=== PATIENT | male | born 1960 | race Caucasian/White ===

== ENCOUNTER 2017-08-08 10:52 | Inpatient (IN) | payer OTHER ==
[2017-08-08] MEDS ORDERED: IPRATROPIUM-ALBUTEROL 3 ML NEB INHALATION STA ×2 (11:02→13:19)
[2017-08-08] MEDS ORDERED: methylPREDNISolone SOD SUCCI 125 MG/2 ML VIAL IV STA (11:02)
--- NOTE | 2017-08-08 11:06 | ED ---
SOB HPI - General Chief Complaint: Shortness of Breath Stated Complaint: SOB Time Seen by Provider: 08/08/17 10:57 Source: patient, RN notes reviewed Mode of arrival: wheelchair Limitations: no limitations - History of Present Illness Initial Comments: This is a 56-year-old male with a history of COPD who is a former smoker who quit 5 years ago who states he had the onset yesterday evening of shortness of breath cough with greenish brown phlegm fevers chills sweats and pain to the chest and increases with deep breathing. He states the pain is occasionally burning in stabbing no mild when this happens senna right side of his chest. He also has some burning with inspiration. His home medications have not worked. He denies any dizziness nausea vomiting he has had some rhinorrhea but no sore throat no earaches. MD Complaint: shortness of breath, cough, chest pain, pain with inspiration - Related Data Home Medications Medication Instructions Recorded Confirmed No Known Home Medications [No 08/08/17 08/08/17 Known Home Medications] Allergies Allergy/AdvReac Type Severity Reaction Status Date / Time No Known Allergies Allergy Verified 08/08/17 11:59 Review of Systems ROS Statement: Those systems with pertinent positive or pertinent negative responses have been documented in the HPI. ROS Other: All systems not noted in ROS Statement are negative. Past Medical History Past Medical History: Asthma, COPD, Pneumonia Additional Past Medical History / Comment(s): Other HX: Recent hospitalization 06/25/14-06/28/14 for COPD/RLL pneumonia, hyperglycemia from steroid use. History of Any Multi-Drug Resistant Organisms: None Reported Past Surgical History: Appendectomy Past Anesthesia/Blood Transfusion Reactions: No Reported Reaction Past Psychological History: Anxiety Smoking Status: Former smoker Past Alcohol Use History: Heavy Past Drug Use History: None Reported - Past Family History Father Additional Family Medical History / Comment(s): Father of an aneurysm Mother Family Medical History: Diabetes Mellitus, Thyroid Disorder General Exam - General Exam Comments Initial Comments: This is a well-developed well-nourished awake alert oriented times 3 male Limitations: no limitations General appearance: alert, anxious, in distress Head exam: Present: atraumatic, normocephalic, normal inspection Eye exam: Present: normal appearance, PERRL, EOMI. Absent: scleral icterus, conjunctival injection, periorbital swelling ENT exam: Present: mucous membranes dry, TM's normal bilaterally, other (Boggy nasal mucosa) Neck exam: Present: normal inspection, full ROM, other (No stridor JVD or bruits ). Absent: tenderness, meningismus, lymphadenopathy Respiratory exam: Present: respiratory distress, wheezes, chest wall tenderness , accessory muscle use, decreased breath sounds Cardiovascular Exam: Present: tachycardia GI/Abdominal exam: Present: soft, normal bowel sounds. Absent: distended, tenderness, guarding, rebound, rigid Extremities exam: Present: normal inspection, full ROM, normal capillary refill. Absent: tenderness, pedal edema, joint swelling, calf tenderness Back exam: Present: normal inspection Neurological exam: Present: alert, oriented X3, CN II-XII intact Psychiatric exam: Present: anxious Skin exam: Present: warm, intact, normal color, diaphoretic Course Vital Signs 08/08/17 08/08/17 08/08/17 10:53 11:09 11:20 Temperature 98.4 F Pulse Rate 105 H 104 H 103 H Respiratory 32 H Rate Blood Pressure 158/101 O2 Sat by Pulse 98 Oximetry 08/08/17 08/08/17 08/08/17 12:02 12:47 13:39 Temperature Pulse Rate 101 H 103 H 96 Respiratory 22 24 Rate Blood Pressure 149/90 153/99 O2 Sat by Pulse 97 95 Oximetry 08/08/17 08/08/17 13:48 14:00 Temperature Pulse Rate 94 92 Respiratory 18 Rate Blood Pressure 158/78 O2 Sat by Pulse 94 L Oximetry - Reevaluation(s) Reevaluation #1: 08/08/17 15:31 I did reevaluate patient several occasions he did not get much relief from the initial treatment including repeat updraft and IV steroids. Medical Decision Making - Medical Decision Making I did discuss the findings with the patient. He is feeling initial treatments and will require admission. I did discuss the case with Dr. Lara. Dr. Moses will be consulted. - Lab Data Result diagrams: 08/08/17 11:10 08/08/17 11:10 Lab Results 08/08/17 08/08/17 08/08/17 Range/Units 11:10 11:10 11:10 WBC 12.6 H (3.8-10.6) k/uL RBC 6.07 H (4.30-5.90) m/uL Hgb 18.1 H (13.0-17.5) gm/dL Hct 54.7 H (39.0-53.0) % MCV 90.2 (80.0-100.0) fL MCH 29.9 (25.0-35.0) pg MCHC 33.1 (31.0-37.0) g/dL RDW 12.9 (11.5-15.5) % Plt Count 210 (150-450) k/uL Neutrophils % 78 % Lymphocytes % 13 % Monocytes % 5 % Eosinophils % 2 % Basophils % 1 % Neutrophils # 9.8 H (1.3-7.7) k/uL Lymphocytes # 1.7 (1.0-4.8) k/uL Monocytes # 0.7 (0-1.0) k/uL Eosinophils # 0.2 (0-0.7) k/uL Basophils # 0.1 (0-0.2) k/uL PT (9.0-12.0) sec INR (<1.2) APTT (22.0-30.0) sec D-Dimer (<0.60) mg/L FEU Sodium 140 (137-145) mmol/L Potassium 4.8 (3.5-5.1) mmol/L Chloride 103 (98-107) mmol/L Carbon Dioxide 19 L (22-30) mmol/L Anion Gap 18 mmol/L BUN 12 (9-20) mg/dL Creatinine 0.89 (0.66-1.25) mg/dL Est GFR (MDRD) Af Amer >60 (>60 ml/min/1.73 sqM) Est GFR (MDRD) Non-Af >60 (>60 ml/min/1.73 sqM) Glucose 230 H (74-99) mg/dL Plasma Lactic Acid Lemuel (0.7-2.0) mmol/L Calcium 9.9 (8.4-10.2) mg/dL Magnesium 1.7 (1.6-2.3) mg/dL Total Bilirubin 1.3 (0.2-1.3) mg/dL AST 53 (17-59) U/L ALT 105 H (21-72) U/L Alkaline Phosphatase 97 (38-126) U/L Total Creatine Kinase 77 (55-170) U/L CK-MB (CK-2) 0.9 (0.0-2.4) ng/mL CK-MB (CK-2) Rel Index 1.2 Troponin I 0.016 (0.000-0.034) ng/mL NT-Pro-B Natriuret Pep pg/mL Total Protein 7.7 (6.3-8.2) g/dL Albumin 4.7 (3.5-5.0) g/dL Influenza Type A RNA (Not Detectd) Influenza Type B (PCR) (Not Detectd) 08/08/17 08/08/17 08/08/17 Range/Units 11:10 11:59 12:01 WBC (3.8-10.6) k/uL RBC (4.30-5.90) m/uL Hgb (13.0-17.5) gm/dL Hct (39.0-53.0) % MCV (80.0-100.0) fL MCH (25.0-35.0) pg MCHC (31.0-37.0) g/dL RDW (11.5-15.5) % Plt Count (150-450) k/uL Neutrophils % % Lymphocytes % % Monocytes % % Eosinophils % % Basophils % % Neutrophils # (1.3-7.7) k/uL Lymphocytes # (1.0-4.8) k/uL Monocytes # (0-1.0) k/uL Eosinophils # (0-0.7) k/uL Basophils # (0-0.2) k/uL PT 10.5 (9.0-12.0) sec INR 1.1 (<1.2) APTT 23.9 (22.0-30.0) sec D-Dimer 0.73 H (<0.60) mg/L FEU Sodium (137-145) mmol/L Potassium (3.5-5.1) mmol/L Chloride (98-107) mmol/L Carbon Dioxide (22-30) mmol/L Anion Gap mmol/L BUN (9-20) mg/dL Creatinine (0.66-1.25) mg/dL Est GFR (MDRD) Af Amer (>60 ml/min/1.73 sqM) Est GFR (MDRD) Non-Af (>60 ml/min/1.73 sqM) Glucose (74-99) mg/dL Plasma Lactic Acid Lemuel 2.0 (0.7-2.0) mmol/L Calcium (8.4-10.2) mg/dL Magnesium (1.6-2.3) mg/dL Total Bilirubin (0.2-1.3) mg/dL AST (17-59) U/L ALT (21-72) U/L Alkaline Phosphatase (38-126) U/L Total Creatine Kinase (55-170) U/L CK-MB (CK-2) (0.0-2.4) ng/mL CK-MB (CK-2) Rel Index Troponin I (0.000-0.034) ng/mL NT-Pro-B Natriuret Pep pg/mL Total Protein (6.3-8.2) g/dL Albumin (3.5-5.0) g/dL Influenza Type A RNA Not Detected (Not Detectd) Influenza Type B (PCR) Not Detected (Not Detectd) 08/08/17 Range/Units 12:01 WBC (3.8-10.6) k/uL RBC (4.30-5.90) m/uL Hgb (13.0-17.5) gm/dL Hct (39.0-53.0) % MCV (80.0-100.0) fL MCH (25.0-35.0) pg MCHC (31.0-37.0) g/dL RDW (11.5-15.5) % Plt Count (150-450) k/uL Neutrophils % % Lymphocytes % % Monocytes % % Eosinophils % % Basophils % % Neutrophils # (1.3-7.7) k/uL Lymphocytes # (1.0-4.8) k/uL Monocytes # (0-1.0) k/uL Eosinophils # (0-0.7) k/uL Basophils # (0-0.2) k/uL PT (9.0-12.0) sec INR (<1.2) APTT (22.0-30.0) sec D-Dimer (<0.60) mg/L FEU Sodium (137-145) mmol/L Potassium (3.5-5.1) mmol/L Chloride (98-107) mmol/L Carbon Dioxide (22-30) mmol/L Anion Gap mmol/L BUN (9-20) mg/dL Creatinine (0.66-1.25) mg/dL Est GFR (MDRD) Af Amer (>60 ml/min/1.73 sqM) Est GFR (MDRD) Non-Af (>60 ml/min/1.73 sqM) Glucose (74-99) mg/dL Plasma Lactic Acid Lemuel (0.7-2.0) mmol/L Calcium (8.4-10.2) mg/dL Magnesium (1.6-2.3) mg/dL Total Bilirubin (0.2-1.3) mg/dL AST (17-59) U/L ALT (21-72) U/L Alkaline Phosphatase (38-126) U/L Total Creatine Kinase (55-170) U/L CK-MB (CK-2) (0.0-2.4) ng/mL CK-MB (CK-2) Rel Index Troponin I (0.000-0.034) ng/mL NT-Pro-B Natriuret Pep 18 pg/mL Total Protein (6.3-8.2) g/dL Albumin (3.5-5.0) g/dL Influenza Type A RNA (Not Detectd) Influenza Type B (PCR) (Not Detectd) - EKG Data -: EKG Interpreted by Ia EKG shows normal: sinus rhythm (Sinus tachycardia rate of 101. Interval 150 QRS 88 QT since QTC 340/440 some artifact is present no acute ST-T wave changes are seen.) - Radiology Data Radiology results: report reviewed (Imaging shows evidence of COPD no definite infiltrate.), image reviewed Critical Care Time Critical Care Time: Yes Critical Care Time: 33 minutes of critical care time which includes initial presentation with history physical labs x-rays multiple reevaluation patient responsive therapy discuss with the patient regarding findings discussed with the admitting physician initial orders and documentation of the above. Disposition Clinical Impression: Acute exacerbation of chronic obstructive airways disease, Adult respiratory distress syndrome, Tracheobronchitis Disposition: ADMITTED IP TO THIS HOSP Condition: Stable Referrals: Inderjit Sims MD [Primary Care Provider] - 1-2 days
--- NOTE | 2017-08-08 11:39 | XR ---
EXAMINATION TYPE: XR chest 2V DATE OF EXAM: 08/08/2017 HISTORY: difficulty breathing. REFERENCE: Previous study dated 01/11/2015. FINDINGS: The lungs are overinflated. The heart is not enlarged. There are chronic pleural parenchyma l changes present. I see no definite superimposed pneumonia or edema. Pleural spaces are clear. IMPRESSION: COPD.
[2017-08-08 11:47] LABS: Albumin 4.7 g/dL (3.5-5.0); Anion Gap 18 mmol/L; Calcium 9.9 mg/dL (8.4-10.2); Carbon Dioxide 19 mmol/L (22-30); Chloride 103 mmol/L (98-107); Glucose 230 mg/dL (74-99); Sodium 140 mmol/L (137-145); Total Bilirubin 1.3 mg/dL (0.2-1.3); Total Protein 7.7 g/dL (6.3-8.2)
[2017-08-08 11:49] LABS: Blood Urea Nitrogen 12 mg/dL (9-20); Magnesium 1.7 mg/dL (1.6-2.3); Potassium 4.8 mmol/L (3.5-5.1)
[2017-08-08 11:50] LABS: ALT 105 U/L (21-72); AST 53 U/L (17-59); Alkaline Phosphatase 97 U/L (38-126)
[2017-08-08 11:51] LABS: Basophils # (A) 0.1 k/uL (0-0.2); Basophils % (A) 1 %; Eosinophils # (A) 0.2 k/uL (0-0.7); Eosinophils % (A) 2 %; HCT 54.7 % (39.0-53.0); HGB 18.1 gm/dL (13.0-17.5); Lymphocytes # (A) 1.7 k/uL (1.0-4.8); Lymphocytes % (A) 13 %; MCH 29.9 pg (25.0-35.0); MCHC 33.1 g/dL (31.0-37.0); MCV 90.2 fL (80.0-100.0); Mean Platelet Volume 7.9; Monocytes # (A) 0.7 k/uL (0-1.0); Monocytes % (A) 5 %; Neutrophils # (A) 9.8 k/uL (1.3-7.7); Neutrophils % (A) 78 %; Platelet Count 210 k/uL (150-450); RBC 6.07 m/uL (4.30-5.90); RDW 12.9 % (11.5-15.5); WBC 12.6 k/uL (3.8-10.6)
[2017-08-08] MEDS: SODIUM CHLORIDE 0.9% 1,000 ML IV STA ×2 (12:01→18:06)
[2017-08-08 12:05] LABS: Creatine Kinase MB 0.9 ng/mL (0.0-2.4); Troponin I 0.016 ng/mL (0.000-0.034)
[2017-08-08 12:34] LABS: D-Dimer 0.73 mg/L FEU (<0.60)
[2017-08-08 12:42] LABS: INR 1.1 (<1.2); Partial Thromboplastin Time 23.9 sec (22.0-30.0); Prothrombin Time 10.5 sec (9.0-12.0)
[2017-08-08] MEDS ORDERED: LEVOFLOXACIN 750MG-D5W PMX 750 MG in DEXTROSE/WATER 1 150ML.BAG IVPB STA (15:35)
[2017-08-08 16:33] LABS: Appearance,Urine Clear (Clear); Bilirubin,Urine Negative (Negative); Blood,Urine Negative (Negative); Color,Urine Yellow; Glucose,Urine (UA) 4+ (Negative); Ketones,Urine 1+ (Negative); Leukocyte Esterase,Urine Negative (Negative); Mucus,Urine Moderate /hpf; Nitrite,Urine Negative (Negative); Protein,Urine 1+ (Negative); RBC,Urine 1 /hpf (0-5); Specific Gravity,Urine 1.021 (1.001-1.035); Squamous Epithelial Cell,Urine <1 /hpf (0-4); Urobilinogen,Urine <2.0 mg/dL (<2.0); WBC,Urine 1 /hpf (0-5)
[2017-08-08 17:16] VITALS: BMI 31.8
[2017-08-08] MEDS: methylPREDNISolone SOD SUCCI 125 MG/2 ML VIAL IV SCH ×2 (18:06→23:59)
[2017-08-08] MEDS: SODIUM CHLORIDE 0.9% 1,000 ML IV SCH (18:06)
[2017-08-08] MEDS: IPRATROPIUM-ALBUTEROL 3 ML NEB INHALATION SCH ×2 (19:10→19:14)
[2017-08-08 20:35] LABS: Glucose,Whole Blood 387 mg/dL (75-99)
[2017-08-08] MEDS: INSULIN ASPART 100 UNIT/ML 1 ML 10 ML VIAL SQ SCH (21:51)
[2017-08-09] MEDS: SODIUM CHLORIDE 0.9% 1,000 ML IV SCH ×2 (00:01→13:22)
[2017-08-09] MEDS: IPRATROPIUM-ALBUTEROL 3 ML NEB INHALATION SCH ×6 (00:03→19:29)
[2017-08-09] MEDS ORDERED: ALPRAZolam 0.25 MG TAB PO PRN (00:22)
[2017-08-09] MEDS ORDERED: TEMAZEPAM 15 MG CAP PO PRN (00:22)
[2017-08-09] MEDS ORDERED: cefTRIAXone IN SWFI 1,000 MG/10 ML SYRINGE IVP SCH (01:00)
[2017-08-09 06:02] LABS: Glucose,Whole Blood 264 mg/dL (75-99)
[2017-08-09] MEDS: methylPREDNISolone SOD SUCCI 125 MG/2 ML VIAL IV SCH ×3 (06:25→17:36)
[2017-08-09] MEDS: FORMOTEROL FUMARATE 20 MCG/2 ML NEBU INHALATION SCH ×2 (07:09→19:29)
[2017-08-09] MEDS: BUDESONIDE 1 MG/2 ML NEBU INHALATION SCH ×2 (07:09→19:29)
[2017-08-09 07:23] LABS: Glucose,Whole Blood 267 mg/dL (75-99)
[2017-08-09] MEDS ORDERED: AZITHROMYCIN 500 MG in SODIUM CHLORIDE 0.9% 250 ML IVPB SCH (09:00)
[2017-08-09] MEDS: PANTOPRAZOLE 40 MG TABLET PO SCH (09:17)
[2017-08-09] MEDS: HEPARIN SODIUM,PORCINE 5,000 UNIT/ML 1 ML VIAL SQ SCH ×2 (09:17→21:14)
[2017-08-09] MEDS: INSULIN ASPART 100 UNIT/ML 1 ML 10 ML VIAL SQ SCH ×4 (09:17→21:16)
--- NOTE | 2017-08-09 09:49 | HP ---
HISTORY AND PHYSICAL CHIEF COMPLAINT: Shortness of breath and cough. HISTORY OF PRESENT ILLNESS: This 56-year-old gentleman with past medical history of COPD, history pneumonia, history of anxiety being for Dr. Sims and Dr. Moses in the outpatient setting has also been to [facility] and was being evaluated for lung resection surgeries /lung transplantation. Currently the patient has shortness of breath and cough and sputum. Patient came to [facility] and admitted for further evaluation and treatment. Chest x-ray showed significant bullous emphysematous changes and greenish-brown phlegm was complained of. There is no history of fever or rigors. No history headache, loss of consciousness, or seizures. PAST MEDICAL HISTORY: Asthma, COPD, history pneumonia, anxiety. MEDICATIONS: Medications prior to admission include home medications are none. ALLERGIES: None. FAMILY HISTORY: History of diabetes, hypothyroidism, aneurysm. SOCIAL HISTORY: Previous history of smoking. Occasional alcohol intake. REVIEW OF SYSTEMS: ENT: No diminished hearing or diminished vision. CARDIOVASCULAR SYSTEM: No angina. RESPIRATORY SYSTEM: As mentioned earlier. GI: No nausea. : No dysuria. NERVOUS SYSTEM: No numbness or weakness. ALLERGY/IMMUNOLOGY: neg MUSCULOSKELETAL: As mentioned earlier. HEMATOLOGY/ONCOLOGY: No history of anemia. ENDOCRINE: No history of diabetes or hypothyroidism. CONSTITUTIONAL: As mentioned earlier. DERMATOLOGY: Negative. RHEUMATOLOGY: Negative. PSYCHIATRY: As mentioned earlier. PHYSICAL EXAMINATION: The patient is alert and oriented x3. Pulse 74, blood pressure 138/69, respiration 18, temperature 98.5, pulse ox 94% on 3 L. HEENT: Conjunctivae normal. Oral mucosa moist. Neck is no jugular venous distention. No carotid bruit. No lymph node enlargement. CARDIOVASCULAR: S1 and S2 muffled. No S3, no S4. RESPIRATORY: Breath sounds diminished at the bases. Breathing efforts are markedly increased, emphysematous. Bilateral scattered rhonchi and crackles. ABDOMEN: Soft, obese, nontender. Umbilical hernia present. LEGS: No edema, no swelling. NERVOUS SYSTEM: Higher function as mentioned earlier. Moves all 4 limbs. No focal motor or sensory deficits. LYMPHATICS: No lymphadenopathy of the neck, axillae or groin. SKIN: No ulcer, rash or bleeding. LABS: WBC 12.6, hemoglobin is 18.1. Otherwise, other labs noted. ASSESSMENT: 1. Chronic obstructive pulmonary disease acute exacerbation with acute purulent tracheobronchitis. 2. Increased WBC. 3. Increased hemoglobin. 4. 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 5. History of asthma, chronic obstructive pulmonary disease. 6. History recent pneumonia. 7. History of anxiety. 8. Remote history of nicotine dependence. RECOMMENDATIONS AND DISCUSSION: This 56-year-old gentleman presented with multiple medical problems, we will monitor the patient closely. Continue the current medications. Continue symptomatic treatment. Will initiate broad-spectrum IV antibiotics and as well as bronchodilators and steroids. We will initiate insulin drip if the patient's sugars are significantly elevated. Further recommendations to follow. MMODL / IJN: [id number] / MTDD
[2017-08-09 11:59] LABS: Glucose,Whole Blood 259 mg/dL (75-99)
[2017-08-09 12:50] LABS: Hemoglobin A1C 8.3 % (4.0-6.0)
--- NOTE | 2017-08-09 14:10 | P.CNPUL ---
History of Present Illness Consult date: 08/09/17 Reason for consult: dyspnea, cough, COPD, hypoxemia, abnormal CXR/CT Chief complaint: Shortness of breath History of present illness: Consult dated 08/09/2017 This is a 56-year-old male well-known to me. He has a history of COPD. He used to smoke quite heavily but quit 5 years ago. The patient has severe emphysema with significant bullae and cystic changes throughout both lungs. He apparently came to the emergency room with complaints of increasing shortness of breath chest tightness wheezing cough and green and brown phlegm production. The patient was quite severe in the emergency room and then was evaluated there and treated and admitted to the hospital. He's feeling a bit better currently but still very very short of breath. He sitting at the bedside. He has significant conversational dyspnea. No audible wheezing. No nasal flaring. No use of accessory muscles. Denies any chest pain or chest discomfort. No palpitations Review of Systems A 12 point review of system is positive for shortness of breath chest tightness wheezing cough and yellow green/brown phlegm production. No fever or chills. No chest pain or chest discomfort. Past Medical History Past Medical History: Asthma, COPD, Pneumonia Additional Past Medical History / Comment(s): Other HX: Recent hospitalization 06/25/14-06/28/14 for COPD/RLL pneumonia, hyperglycemia from steroid use. History of Any Multi-Drug Resistant Organisms: None Reported Past Surgical History: Appendectomy Past Anesthesia/Blood Transfusion Reactions: No Reported Reaction Past Psychological History: Anxiety Additional Psychological History / Comment(s): anxiety related to episodes of shortness of breath Smoking Status: Former smoker Past Alcohol Use History: Heavy Additional Past Alcohol Use History / Comment(s): Pt lives at home alone. Pt is an independent person. He drives a car. He is employed. Past Drug Use History: None Reported - Past Family History Father Additional Family Medical History / Comment(s): Father of an aneurysm Mother Family Medical History: Diabetes Mellitus, Thyroid Disorder Medications and Allergies Home Medications Medication Instructions Recorded Confirmed Type No Known Home Medications [No 08/08/17 08/08/17 History Known Home Medications] Allergies Allergy/AdvReac Type Severity Reaction Status Date / Time No Known Allergies Allergy Verified 08/08/17 11:59 Physical Exam Osteopathic Statement: *. No significant issues noted on an osteopathic structural exam other than those noted in the History and Physical/Consult. Vitals: Vital Signs Temp Pulse Pulse Resp BP BP Pulse Ox 08/09/17 10:49 91 08/09/17 10:43 90 08/09/17 08:00 18 08/09/17 07:32 89 08/09/17 07:23 88 08/09/17 07:22 88 08/09/17 07:12 88 08/09/17 05:50 96.7 F L 86 18 158/97 96 08/09/17 00:25 87 08/09/17 00:06 87 08/08/17 23:00 98.5 F 74 18 138/69 94 L 08/08/17 19:24 100 08/08/17 19:14 104 H 08/08/17 18:08 97.5 F L 96 20 145/95 95 08/08/17 17:49 24 08/08/17 16:08 98.5 F 93 22 162/86 94 L Intake and Output 08/08/17 08/09/17 08/09/17 22:59 06:59 14:59 Intake Total 200 320 Output Total 700 Balance 200 -700 320 Intake: Amount of Fluid Infused ( 200 ml) Oral 320 Output: Urine 700 Other: # Voids 2 Weight 100.5 kg 100.5 kg Patient Weight 08/10/17 06:59 Weight 100.5 kg Mild to moderate distress, oriented 3. The patient does have conversational dyspnea. HEENT examination is grossly unremarkable. Mucous membranes are moist. No oral lesions. Neck supple. Full range of motion. No adenopathy thyromegaly or neck vein distention. Cardiovascular examination reveals regular rhythm rate. S1-S2 normal. No S3 or S4. No discernible murmur noted. Lungs reveal severely diminished breath sounds. Scattered wheezes and rhonchi. This prolongation on forced maneuver. Adventitious lung sounds are more prominent on forced maneuver. The patient coughs and wheezes on forced maneuver. Abdomen soft bowel sounds are heard. No masses or tenderness. Extremities are intact. No cyanosis clubbing or edema. Skin is without rash or lesion. Neurologic examination is brief but nonfocal. Results - Laboratory Findings CBC and BMP: 08/08/17 11:10 08/08/17 11:10 PT/INR, D-dimer PT 10.5 sec (9.0-12.0) 08/08/17 12:01 INR 1.1 (<1.2) 08/08/17 12:01 D-Dimer 0.73 mg/L FEU (<0.60) H 08/08/17 12:01 Abnormal lab findings: Abnormal Labs 08/08/17 08/08/17 08/08/17 11:10 11:10 12:01 WBC 12.6 H RBC 6.07 H Hgb 18.1 H Hct 54.7 H Neutrophils # 9.8 H D-Dimer 0.73 H Carbon Dioxide 19 L Glucose 230 H POC Glucose (mg/dL) ALT 105 H Urine Protein Urine Glucose (UA) Urine Ketones Urine Mucus 08/08/17 08/08/17 08/09/17 16:05 20:33 06:00 WBC RBC Hgb Hct Neutrophils # D-Dimer Carbon Dioxide Glucose POC Glucose (mg/dL) 387 H 264 H ALT Urine Protein 1+ H Urine Glucose (UA) 4+ H Urine Ketones 1+ H Urine Mucus Moderate H 08/09/17 08/09/17 07:19 11:55 WBC RBC Hgb Hct Neutrophils # D-Dimer Carbon Dioxide Glucose POC Glucose (mg/dL) 267 H 259 H ALT Urine Protein Urine Glucose (UA) Urine Ketones Urine Mucus - Diagnostic Findings Chest x-ray: image reviewed (Labs x-rays a medications are all reviewed.) Assessment and Plan Assessment: Assessment Hypoxemic respiratory failure secondary to COPD exacerbation probable purulent tracheobronchitis Chronic hypoxemia Previous history of heavy tobacco use Previous history of pneumonia History of steroid-induced hyperglycemia Severe bullous lung disease Plan: Plan dated 08/09/2017 The patient's medications are reviewed. He'll be placed on standard medications including short acting beta agonist, short acting muscarinic antagonist, long-acting beta agonist, and inhaled corticosteroids. We'll also need some antibiotics as well as systemic corticosteroids. Additional recommendations and suggestions are forthcoming. Prognosis is guarded. He's got severe disease. He is significant bullous disease. We'll continue to follow. Time with Patient: Greater than 30
[2017-08-09] MEDS ORDERED: LEVOFLOXACIN 500 MG TAB PO SCH (16:00)
[2017-08-09 17:30] LABS: Glucose,Whole Blood 264 mg/dL (75-99)
[2017-08-09 20:50] LABS: Glucose,Whole Blood 248 mg/dL (75-99)
[2017-08-09] MEDS: cefTRIAXone IN SWFI 1,000 MG/10 ML SYRINGE IVP SCH (21:19)
--- NOTE | 2017-08-09 22:13 | PN ---
PROGRESS NOTE DATE OF SERVICE: 08/09/2017 This 56 -year-old gentleman admitted with COPD acute exacerbation, as well as acute purulent tracheobronchitis is still having significant shortness of breath, patient on IV steroids and bronchodilators. Pulmonary Dr. Carmona is following the patient. No chest pain. No palpitations. No fever. EXAM: Alert and oriented times three. Pulse is 85, blood pressure 131/83, respiration 22, temperature 97.2, pulse ox 94% on 3 L. HEENT: Conjunctivae normal. Neck: No jugular venous distention. Cardiovascular: S1, S2. Respiratory: Breath sounds diminished in the bases. Bilateral scattered rhonchi and crackles. Expiratory wheezing. Abdomen is soft, nontender. Legs are no edema. No swelling. Central nervous system: No focal deficits. LABS: WBC 12.2, hemoglobin 18.1. Glucose 387 and 264. ASSESSMENT: 1. Chronic obstructive pulmonary disease exacerbation with acute purulent tracheobronchitis. 2. Increased WBC. 3. Increased hemoglobin. 4. 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 5. Bilateral bullous lesions with bullous emphysema. 6. History of asthma, chronic obstructive pulmonary disease. 7. Recent pneumonia. 8. History of anxiety. 9. Remote history of nicotine dependence. RECOMMENDATIONS AND DISCUSSION: Recommend to continue current medications, management and symptomatic treatment. Continue with IV steroids. Continue with bronchodilators. Closely follow with Dr. Carmona. Guarded prognosis because of multiple complex medical issues. Monitor blood sugars closely. DVT prophylaxis. Continue the empiric antibiotics. Further recommendations to follow. MMODL / IJN: [id number] /
[2017-08-10] MEDS: IPRATROPIUM-ALBUTEROL 3 ML NEB INHALATION SCH ×6 (00:03→20:26)
[2017-08-10] MEDS: methylPREDNISolone SOD SUCCI 125 MG/2 ML VIAL IV SCH ×4 (00:11→17:42)
[2017-08-10 06:59] LABS: Glucose,Whole Blood 329 mg/dL (75-99)
[2017-08-10] MEDS: FORMOTEROL FUMARATE 20 MCG/2 ML NEBU INHALATION SCH ×2 (07:34→20:26)
[2017-08-10] MEDS: BUDESONIDE 1 MG/2 ML NEBU INHALATION SCH ×2 (07:34→20:26)
[2017-08-10] MEDS: HEPARIN SODIUM,PORCINE 5,000 UNIT/ML 1 ML VIAL SQ SCH ×2 (08:13→21:18)
[2017-08-10] MEDS: AZITHROMYCIN 500 MG TAB PO SCH (08:13)
[2017-08-10] MEDS: PANTOPRAZOLE 40 MG TABLET PO SCH (08:13)
[2017-08-10] MEDS: INSULIN ASPART 100 UNIT/ML 1 ML 10 ML VIAL SQ SCH ×9 (08:13→21:41)
[2017-08-10 08:35] LABS: Basophils % (A) 0 %; Eosinophils % (A) 0 %; HCT 48.1 % (39.0-53.0); HGB 15.6 gm/dL (13.0-17.5); Lymphocytes # (A) 0.6 k/uL (1.0-4.8); Lymphocytes % (A) 5 %; MCH 29.9 pg (25.0-35.0); MCHC 32.4 g/dL (31.0-37.0); MCV 92.1 fL (80.0-100.0); Mean Platelet Volume 7.1; Monocytes # (A) 0.2 k/uL (0-1.0); Monocytes % (A) 2 %; Neutrophils % (A) 92 %; Platelet Count 197 k/uL (150-450); RBC 5.22 m/uL (4.30-5.90); WBC 10.9 k/uL (3.8-10.6)
[2017-08-10 08:45] LABS: Anion Gap 13 mmol/L; Blood Urea Nitrogen 20 mg/dL (9-20); Calcium 9.4 mg/dL (8.4-10.2); Carbon Dioxide 23 mmol/L (22-30); Chloride 104 mmol/L (98-107); Glucose 306 mg/dL (74-99); Potassium 4.9 mmol/L (3.5-5.1); Sodium 140 mmol/L (137-145)
--- NOTE | 2017-08-10 09:51 | P.PN ---
Subjective Progress Note Date: 08/10/17 Principal diagnosis: Acute on chronic hypoxic respiratory failure secondary to COPD exacerbation and purulent tracheobronchitis Consult dated 08/09/2017 This is a 56-year-old male well-known to me. He has a history of COPD. He used to smoke quite heavily but quit 5 years ago. The patient has severe emphysema with significant bullae and cystic changes throughout both lungs. He apparently came to the emergency room with complaints of increasing shortness of breath chest tightness wheezing cough and green and brown phlegm production. The patient was quite severe in the emergency room and then was evaluated there and treated and admitted to the hospital. He's feeling a bit better currently but still very very short of breath. He sitting at the bedside. He has significant conversational dyspnea. No audible wheezing. No nasal flaring. No use of accessory muscles. Denies any chest pain or chest discomfort. No palpitations. On 08/10/2017 patient seen in follow-up. He is awake, alert, upbeat. Lung sounds are diminished with some scattered expiratory wheezes, with prolongation of the expiratory phase. No rhonchi noted. Vital signs are stable, he is currently on 4 L per nasal cannula with O2 sat at 96%. He is afebrile. He is bringing up some yellow sputum. Culture is negative at the 24-hour sofía. He continues on a combination of Rocephin and Zithromax, Pulmicort, femoral, DuoNeb nebulized treatments and IV Solu-Medrol. He stated he was seen by Dr. Chavarria at the [facility], who is considering the patient for lung transplantation. The initial workup was done, and Dr. Chavarria recommended pulmonary rehab to improve conditioning and hopefully breathlessness. Patient was recommended some weight loss. Patient was referred to the [facility] at [facility], and the [facility] is supposed to contact the patient with an appointment. Objective - Vital Signs Vital signs: Vital Signs Temp 97.3 F L 08/10/17 07:00 Pulse 79 08/10/17 07:57 Resp 16 08/10/17 07:35 BP 152/98 08/10/17 07:00 Pulse Ox 96 08/10/17 07:00 Intake & Output 08/09/17 08/10/17 08/10/17 18:59 06:59 18:59 Intake Total 320 Output Total 850 Balance 320 -850 Weight 100.5 kg Intake: Oral 320 Output: Urine 850 Other: Voiding Method Toilet # Voids 3 3 - Exam GENERAL EXAM: Alert, pleasant, 56-year-old white male comfortable in no apparent distress. HEAD: Normocephalic/atraumatic. EYES: Normal reaction of pupils, equal size. Conjunctiva pink, sclera white. NOSE: Clear with pink turbinates. THROAT: No erythema or exudates. NECK: No masses, no JVD, no thyroid enlargement, no adenopathy. CHEST: No chest wall deformity. Symmetrical expansion. LUNGS: Equal air entry with some scattered end expiratory wheezing, there is prolongation of expiratory phase, but there is good air entry bilaterally CVS: Regular rate and rhythm, normal S1 and S2, no gallops, no murmurs, no rubs ABDOMEN: Soft, nontender. No hepatosplenomegaly, normal bowel sounds, no guarding or rigidity. EXTREMITIES: No clubbing, no edema, no cyanosis, 2+ pulses and upper and lower extremities. MUSCULOSKELETAL: Muscle strength and tone normal. SPINE: No scoliosis or deformity SKIN: No rashes CENTRAL NERVOUS SYSTEM: Alert and oriented -3. No focal deficits, tone is normal in all 4 extremities. PSYCHIATRIC: Alert and oriented -3. Appropriate affect. Intact judgment and insight. - Labs CBC & Chem 7: 08/10/17 07:52 08/10/17 07:52 Labs: Abnormal Lab Results - Last 24 Hours (Table) 08/08/17 08/09/17 08/09/17 Range/Units 11:10 11:55 17:15 WBC (3.8-10.6) k/uL Neutrophils # (1.3-7.7) k/uL Lymphocytes # (1.0-4.8) k/uL Glucose (74-99) mg/dL POC Glucose (mg/dL) 259 H 264 H (75-99) mg/dL Hemoglobin A1c 8.3 H (4.0-6.0) % 08/09/17 08/10/17 08/10/17 Range/Units 20:48 06:49 07:52 WBC 10.9 H (3.8-10.6) k/uL Neutrophils # 10.0 H (1.3-7.7) k/uL Lymphocytes # 0.6 L (1.0-4.8) k/uL Glucose (74-99) mg/dL POC Glucose (mg/dL) 248 H 329 H (75-99) mg/dL Hemoglobin A1c (4.0-6.0) % 08/10/17 Range/Units 07:52 WBC (3.8-10.6) k/uL Neutrophils # (1.3-7.7) k/uL Lymphocytes # (1.0-4.8) k/uL Glucose 306 H (74-99) mg/dL POC Glucose (mg/dL) (75-99) mg/dL Hemoglobin A1c (4.0-6.0) % Microbiology - Last 24 Hours (Table) 08/08/17 11:10 Blood Culture - Preliminary Blood No Growth after 24 hours Assessment and Plan Plan: Assessment: Assessment #1 Hypoxemic respiratory failure secondary to COPD exacerbation probable purulent tracheobronchitis #2 Chronic hypoxemia #3 Previous history of heavy tobacco use #4 Previous history of pneumonia #5 History of steroid-induced hyperglycemia #6 Severe bullous lung disease, patient is currently being evaluated for lung transplantation at [facility]. Has completed initial evaluation. Plan: Plan dated 08/09/2017 The patient's medications are reviewed. He'll be placed on standard medications including short acting beta agonist, short acting muscarinic antagonist, long-acting beta agonist, and inhaled corticosteroids. We'll also need some antibiotics as well as systemic corticosteroids. Additional recommendations and suggestions are forthcoming. Prognosis is guarded. He's got severe disease. He is significant bullous disease. We'll continue to follow. Plan dated 08/10/2017 Increase activity as tolerated, patient denies any acute distress, does become dyspneic with ambulation. Currently on 4 L per nasal cannula with O2 sat 96%. Vital signs are stable. Current medical treatment, patient is being evaluated for lung transplantation at the [facility], he has undergone initial evaluation by Dr. Chavarria. Patient was recommended pulmonary rehab, and weight loss for optimization of his conditioning and breathlessness. He was referred to the [facility] at [facility], and they are supposed to call him with an appointment. We will continue to closely follow with you I performed a history & physical examination of the patient and discussed their management with my nurse practitioner, Destiny Kathleen. I reviewed the nurse practitioner's note and agree with the documented findings and plan of care. Lung sounds are and expiratory wheezes, generally diminished lung sounds, and prolongation of the expiratory phase. The findings and the impression was discussed with the patient. I attest to the documentation by the nurse practitioner. Time with Patient: Less than 30
[2017-08-10 11:37] LABS: Glucose,Whole Blood 214 mg/dL (75-99)
[2017-08-10] MEDS: metFORMIN 500 MG TAB PO SCH ×2 (12:03→17:42)
[2017-08-10] MEDS: INSULIN DETEMIR 100 UNIT/ML 10 ML VIAL SQ SCH (12:07)
[2017-08-10 17:10] LABS: Glucose,Whole Blood 234 mg/dL (75-99)
[2017-08-10] MEDS: SODIUM CHLORIDE 0.9% 1,000 ML IV SCH (17:41)
[2017-08-10 20:46] LABS: Glucose,Whole Blood 257 mg/dL (75-99)
[2017-08-10] MEDS: cefTRIAXone IN SWFI 1,000 MG/10 ML SYRINGE IVP SCH (21:18)
[2017-08-11] MEDS: IPRATROPIUM-ALBUTEROL 3 ML NEB INHALATION SCH ×4 (00:18→11:50)
[2017-08-11] MEDS: methylPREDNISolone SOD SUCCI 125 MG/2 ML VIAL IV SCH ×3 (01:01→12:03)
[2017-08-11 07:08] LABS: Glucose,Whole Blood 281 mg/dL (75-99)
[2017-08-11] MEDS: INSULIN ASPART 100 UNIT/ML 1 ML 10 ML VIAL SQ SCH ×5 (08:11→12:02)
[2017-08-11] MEDS: HEPARIN SODIUM,PORCINE 5,000 UNIT/ML 1 ML VIAL SQ SCH (08:12)
[2017-08-11] MEDS: INSULIN DETEMIR 100 UNIT/ML 10 ML VIAL SQ SCH (08:12)
[2017-08-11] MEDS: AZITHROMYCIN 500 MG TAB PO SCH (08:13)
[2017-08-11] MEDS: metFORMIN 500 MG TAB PO SCH (08:13)
[2017-08-11] MEDS: PANTOPRAZOLE 40 MG TABLET PO SCH (08:13)
[2017-08-11] MEDS: BUDESONIDE 1 MG/2 ML NEBU INHALATION SCH (08:19)
[2017-08-11] MEDS: FORMOTEROL FUMARATE 20 MCG/2 ML NEBU INHALATION SCH (08:19)
[2017-08-11 08:20] LABS: Basophils % (A) 0 %; Eosinophils # (A) 0.1 k/uL (0-0.7); Eosinophils % (A) 1 %; HCT 47.2 % (39.0-53.0); HGB 15.4 gm/dL (13.0-17.5); Lymphocytes # (A) 0.5 k/uL (1.0-4.8); Lymphocytes % (A) 6 %; MCH 29.8 pg (25.0-35.0); MCHC 32.7 g/dL (31.0-37.0); MCV 91.3 fL (80.0-100.0); Monocytes # (A) 0.2 k/uL (0-1.0); Monocytes % (A) 3 %; Neutrophils # (A) 7.8 k/uL (1.3-7.7); Neutrophils % (A) 90 %; Platelet Count 204 k/uL (150-450); RBC 5.18 m/uL (4.30-5.90); RDW 12.8 % (11.5-15.5); WBC 8.7 k/uL (3.8-10.6)
[2017-08-11 08:47] LABS: Anion Gap 12 mmol/L; Blood Urea Nitrogen 20 mg/dL (9-20); Calcium 9.3 mg/dL (8.4-10.2); Carbon Dioxide 22 mmol/L (22-30); Chloride 103 mmol/L (98-107); Glucose 317 mg/dL (74-99); Potassium 4.9 mmol/L (3.5-5.1); Sodium 137 mmol/L (137-145)
[2017-08-11] MEDS ORDERED: amLODIPine 5 MG TAB PO SCH (11:30)
--- NOTE | 2017-08-11 11:40 | P.PN ---
Subjective Progress Note Date: 08/10/17 Progress note being dictated for Dr. Lara. Interval history: This a 56-year-old gentleman admitted with acute COPD exacerbation with purulent tracheobronchitis. Maintained on nebulized bronchodilators, IV steroids, Zithromax, Rocephin. Breathing improving, wheezing persists. Complains of shortness of breath with exertion. Productive cough with minimal yellow sputum. Hemoglobin A1c 8.2, family history of diabetes mellitus, Levemir metformin initiated. Objective - Vital Signs Vital signs: Vital Signs Temp 97.2 F L 08/10/17 15:00 Pulse 74 08/10/17 16:32 Resp 18 08/10/17 15:33 BP 145/81 08/10/17 15:00 Pulse Ox 94 L 08/10/17 15:00 Intake & Output 08/10/17 08/10/17 08/11/17 06:59 18:59 06:59 Output Total 850 Balance -850 Output: Urine 850 Other: Voiding Method Toilet # Voids 3 3 # Bowel Movements 1 - Exam PHYSICAL EXAM: VITAL SIGNS: [As above] GENERAL: Sitting up in bed, no acute distress HEENT: Conjunctivae normal. eyes normal. Oral mucosa moist NECK: No JVD. No thyroid enlargement. No LNs CARDIOVASCULAR: S1, S2 muffled. No murmur RESPIRATION: Air entry improving, Breath sounds diminished in the bases. Prolonged expiratory wheezing scattered ABDOMEN: Soft, nontender . No guarding. no masses palpable. Bowel sounds heard. LEGS: No edema. no swelling PSYCHIATRY: Alert and oriented -3, mood and affect normal. NERVOUS SYSTEM: Cranial N 2-12 grossly normal. Moves all 4 limbs. Diffuse weakness No focal deficits. Skin: no ulcer no rash Joints: No active swelling. No inflammation. Lymphatic system. No LN neck axilla or groin. - Labs CBC & Chem 7: 08/11/17 08:03 08/11/17 08:03 Labs: Abnormal Lab Results - Last 24 Hours (Table) 08/09/17 08/10/17 08/10/17 Range/Units 20:48 06:49 07:52 WBC 10.9 H (3.8-10.6) k/uL Neutrophils # 10.0 H (1.3-7.7) k/uL Lymphocytes # 0.6 L (1.0-4.8) k/uL Glucose (74-99) mg/dL POC Glucose (mg/dL) 248 H 329 H (75-99) mg/dL 08/10/17 08/10/17 08/10/17 Range/Units 07:52 11:18 17:07 WBC (3.8-10.6) k/uL Neutrophils # (1.3-7.7) k/uL Lymphocytes # (1.0-4.8) k/uL Glucose 306 H (74-99) mg/dL POC Glucose (mg/dL) 214 H 234 H (75-99) mg/dL Microbiology - Last 24 Hours (Table) 08/08/17 11:10 Blood Culture - Preliminary Blood No Growth after 48 hours Assessment and Plan Assessment: 1. Acute COPD exacerbation with acute purulent tracheobronchitis 2. Leukocytosis 3. 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 Bilateral bullous lesions with bullous emphysema 5. History of asthma, COPD 6. Recent pneumonia Plan: Continue current medication regime ,monitoring and symptomatic treatment. Maintain nebulized dilators, IV steroids and antibiotics. Increase ambulation as tolerated. Close monitoring of Accu-Cheks as patient remains on IV steroids. Discharge planning in progress for tomorrow pending pulmonary clearance. The impression and plan of care has been dictated as directed. : I performed a history and examination of this patient, discussed the same with the dictator. I agree with the dictator's note ,documented as a scribe. Any additional findings or plans will be noted.
[2017-08-11 11:43] LABS: Glucose,Whole Blood 228 mg/dL (75-99)
--- NOTE | 2017-08-11 12:03 | P.PN ---
Subjective Progress Note Date: 08/11/17 Principal diagnosis: COPD exacerbation Progress note dated 08/11/2017 This is a 56-year-old male with a history of hypoxemic respiratory failure secondary to severe COPD. The patient has a history of significant chronic bolus and cystic disease of the lungs. He currently is being evaluated for lung transplantation at [facility]. He has a history of steroid- induced hyperglycemia pneumonia previous history of heavy tobacco use and chronic hypoxemia. He'll follow-up with my partner in the office post discharge. He's feeling like he is at baseline. He is chronically short of breath with any activity. Not more than usual. Denies any cough or phlegm production. No wheezing. No tightness. No fever no chills. No nausea vomiting or diarrhea. Objective - Vital Signs Vital signs: Vital Signs Temp 96.9 F L 08/11/17 06:38 Pulse 72 08/11/17 11:50 Resp 16 08/11/17 06:38 BP 155/99 08/11/17 07:15 Pulse Ox 95 08/11/17 06:38 Intake & Output 08/10/17 08/11/17 08/11/17 18:59 06:59 18:59 Output Total 900 Balance -900 Output: Urine 900 Other: Voiding Method Toilet Toilet # Voids 3 2 # Bowel Movements 1 - Exam No acute distress, oriented 3. Nasal O2 in place HEENT examination is grossly unremarkable. Mucous membranes are moist. No oral lesions. Neck supple. Full range of motion. No adenopathy thyromegaly or neck vein distention. Cardiovascular examination reveals regular rhythm rate. S1-S2 normal. No S3 or S4. No discernible murmur noted. Lungs reveal severely diminished breath sounds. A few scattered rhonchi. Mild high-pitched wheezes noted. There is prolongation on forced maneuver. Adventitious lung sounds are more prominent on forced maneuver. Abdomen soft bowel sounds are heard. No masses or tenderness. Extremities are intact. No cyanosis clubbing or edema. Skin is without rash or lesion. Neurologic examination is brief but nonfocal. - Labs CBC & Chem 7: 08/11/17 08:03 08/11/17 08:03 Labs: Abnormal Lab Results - Last 24 Hours (Table) 08/10/17 08/10/17 08/11/17 Range/Units 17:07 20:45 07:06 Neutrophils # (1.3-7.7) k/uL Lymphocytes # (1.0-4.8) k/uL Glucose (74-99) mg/dL POC Glucose (mg/dL) 234 H 257 H 281 H (75-99) mg/dL 08/11/17 08/11/17 08/11/17 Range/Units 08:03 08:03 11:39 Neutrophils # 7.8 H (1.3-7.7) k/uL Lymphocytes # 0.5 L (1.0-4.8) k/uL Glucose 317 H (74-99) mg/dL POC Glucose (mg/dL) 228 H (75-99) mg/dL Microbiology - Last 24 Hours (Table) 08/08/17 11:10 Blood Culture - Preliminary Blood No Growth after 48 hours Assessment and Plan Assessment: Assessment Hypoxemic respiratory failure secondary to COPD exacerbation probable purulent tracheobronchitis Chronic hypoxemia Previous history of heavy tobacco use Previous history of pneumonia History of steroid-induced hyperglycemia Severe bullous lung disease Plan: Plan dated 08/09/2017 The patient's medications are reviewed. He'll be placed on standard medications including short acting beta agonist, short acting muscarinic antagonist, long-acting beta agonist, and inhaled corticosteroids. We'll also need some antibiotics as well as systemic corticosteroids. Additional recommendations and suggestions are forthcoming. Prognosis is guarded. He's got severe disease. He is significant bullous disease. We'll continue to follow. Plan dated 08/11/2017 The patient is doing much better. He will be discharged home. The patient will follow-up my partner in the office. The patient has severe COPD. He is being evaluated for lung transplantation at [facility]. He knows that he needs to take his medications on a regular basis. We counseled about the importance of maintaining smoking cessation. He knows how to use his medications. He'll be discharged home on some prednisone with a taper. He'll see my partner next week. No additional recommendations are made. Prognosis is very guarded. Time with Patient: Less than 30
[2017-08-11 15:05] VITALS: BP 154/86; PULSE 77; RESP 20; TEMP 97.6
--- NOTE | 2017-08-11 22:54 | DS ---
DISCHARGE SUMMARY FINAL DIAGNOSES: 1. Chronic obstructive pulmonary disease acute exacerbation with acute purulent tracheobronchitis. 2. Leukocytosis. 3. 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 Hemoglobin A1c is 8.2. 4. Family history of diabetes mellitus type 2. 5. Bilateral bullous lesions with bullous emphysema. 6. History of asthma/chronic obstructive pulmonary disease. 7. Recent pneumonia. DISCHARGE CONDITION: The patient is discharged in stable condition with guarded prognosis. Dr. Carmona cleared the patient for discharge. HISTORY OF PRESENT ILLNESS: This 56-year-old gentleman with a past medical history of multiple medical problems including COPD acute exacerbation as well as acute purulent tracheobronchitis, treated with bronchodilators and antibiotics. The patient also used steroids. Patient also had elevated blood sugars, which is treated with control with Lantus and metformin at this time. Recommend to continue with Lantus and metformin as outpatient and monitor Accu-Cheks closely. Recommend close follow up with Dr. Sims and further adjustments in the outpatient setting. PHYSICAL EXAMINATION: Vitals are stable. Cardiovascular System, S1 and S2. Respiratory, few scattered rhonchi. Abdomen soft, nontender, nondistended. INSTRUCTIONS: 1. Consistent carb. 2. Activity limited. 3. Follow up with Dr. Sims in 2 to 3 days. 4. Follow up with Dr. Moses. 5. Accu-Cheks with meals and at bedtime. 6. Followup with Dr. Sims. MEDICATIONS: 1. Ventolin HFA 1 to 2 puffs p.r.n. 2. Norvasc 5 mg p.o. daily. 3. Zithromax 500 mg p.o. 4. Pulmicort 1 mg b.i.d. 5. Ceftin 500 mg p.o. b.i.d. 6. Perforomist 20 mcg b.i.d. 7. Levemir 15 mg subcu daily. 8. Glucophage 500 mg p.o. b.i.d. 9. Protonix 40 mg b.i.d. 10.Prednisone taper 40 mg daily for 4 days, 30 for 4 days, 20 for 4 days, 10 for 4 days and then stop. 11.DuoNeb q.i.d. and p.r.n. MMDONNAL / IRENEN: [id number] /
== END 2017-08-11 15:36 | disposition home or self-care (01) | DRG 190 ==
LOC: EC 10:52 → 4MS4W 15:36
PROVIDERS: ADMIT Hospitalist; ATTEND Hospitalist
DX: J44.0 Chronic obstructive pulmonary disease with (acute) lower respiratory infection (principal); J96.21 Acute and chronic respiratory failure with hypoxia; D72.829 Elevated white blood cell count, unspecified; E09.9 Drug or chemical induced diabetes mellitus without complications; F41.9 Anxiety disorder, unspecified; J20.9 Acute bronchitis, unspecified; T38.0X5A Adverse effect of glucocorticoids and synthetic analogues, initial encounter; J44.1 Chronic obstructive pulmonary disease with (acute) exacerbation; Z87.891 Personal history of nicotine dependence; Z79.52 Long term (current) use of systemic steroids; Z83.3 Family history of diabetes mellitus; Z87.01 Personal history of pneumonia (recurrent); Z60.2 Problems related to living alone
CPT/HCPCS: 36415; 71046; 80048; 80053; 81001; 82550; 82553; 83036; 83605; 83735; 83880; 84484; 85025; 85379; 85610; 85730; 87040; 87502; 93005; 94640; 96374; 99291

== ENCOUNTER 2023-03-18 04:44 | Inpatient (IN) | payer MEDICARE, OTHER ==
[2023-03-18 04:52] LABS: Glucose,Whole Blood 189 mg/dL (70-110)
[2023-03-18] MEDS ORDERED: NITROGLYCERIN SL TABS 0.4 MG TAB SUBLINGUAL STA (04:53)
[2023-03-18] MEDS ORDERED: LORazepam 2 MG/ML INJ IV STA (04:56)
[2023-03-18] MEDS ORDERED: ONDANSETRON 4 MG/2 ML VIAL IVP STA (04:56)
[2023-03-18] MEDS ORDERED: methylPREDNISolone SOD SUCCI 125 MG/2 ML VIAL IV STA ×3 (05:00→13:07)
[2023-03-18] MEDS ORDERED: SODIUM CHLORIDE 0.9% 1,000 ML IV STA (05:00)
[2023-03-18] MEDS ORDERED: IPRATROPIUM-ALBUTEROL 3 ML NEB INHALATION STA ×2 (05:00)
--- NOTE | 2023-03-18 05:02 | ED ---
SOB HPI - General Chief Complaint: Shortness of Breath Stated Complaint: Respitory distress Source: patient, EMS Mode of arrival: EMS Limitations: no limitations - History of Present Illness Initial Comments: Flower is a [id number] Eduard with a history of COPD who presents the ER today via ambulance for evaluation of sudden onset of shortness of breath. Patient reports he woke up around 3:30 with shortness breath and breathing treatments at home hasn't been able to improve progressively worsening his heart racing feels that he can't catch his breath. No chest pain. No recent illness. - Related Data Previous Rx's Medication Instructions Recorded Albuterol Inhaler [Ventolin Hfa 1 - 2 puff INHALATION Q6HR PRN 30 08/11/17 Inhaler] Days #1 inhaler Azithromycin [Zithromax] 500 mg PO DAILY 5 Days #5 tab 08/11/17 Budesonide [Pulmicort] 1 mg INHALATION BID 30 Days #2 box 08/11/17 Formoterol Fumarate [Perforomist] 20 mcg INHALATION BID 30 Days #2 08/11/17 box Insulin Detemir (Levemir) [Levemir] 15 unit SQ DAILY 30 Days #2 syr 08/11/17 Pantoprazole [Protonix] 40 mg PO AC-BRKFST #30 tablet. 08/11/17 amLODIPine BESYLATE [Norvasc] 5 mg PO DAILY 30 Days #30 tablet 08/11/17 cefUROXime axetiL [Ceftin] 500 mg PO BID 8 Days #16 tab 08/11/17 metFORMIN HCL [Glucophage] 500 mg PO BID-W/MEALS #60 tab 08/11/17 predniSONE 10 mg PO DAILY 16 Days #40 tab 08/11/17 Allergies Allergy/AdvReac Type Severity Reaction Status Date / Time No Known Allergies Allergy Verified 03/18/23 04:44 Review of Systems ROS Statement: Those systems with pertinent positive or pertinent negative responses have been documented in the HPI. ROS Other: All systems not noted in ROS Statement are negative. Past Medical History Past Medical History: Asthma, COPD, Pneumonia Additional Past Medical History / Comment(s): Other HX: Recent hospitalization 06/25/14-06/28/14 for COPD/RLL pneumonia, hyperglycemia from steroid use. History of Any Multi-Drug Resistant Organisms: None Reported Past Surgical History: Appendectomy Past Anesthesia/Blood Transfusion Reactions: No Reported Reaction Past Psychological History: Anxiety Smoking Status: Never smoker Past Alcohol Use History: Heavy Past Drug Use History: None Reported - Past Family History Father Additional Family Medical History / Comment(s): Father of an aneurysm Mother Family Medical History: Diabetes Mellitus, Thyroid Disorder General Exam - General Exam Comments Initial Comments: Physical Exam GENERAL: Moderate respiratory distress HENT: Normocephalic, Atraumatic. EYES: PERRL, EOMI PULMONARY: Tachypnea CARDIOVASCULAR: Tachycardic ABDOMEN: Soft and nontender with normal bowel sounds. SKIN: Diaphoretic : Deferred NEUROLOGIC: Patient is alert and oriented x3. Moving all extremities spontaneously MUSCULOSKELETAL: Normal extremities with adequate strength and full range of motion. No lower extremity swelling or edema. No calf tenderness. PSYCHIATRIC: Normal psychiatric evaluation. Limitations: no limitations Course Vital Signs 03/18/23 03/18/23 03/18/23 04:45 04:55 05:00 Temperature 98.2 F Pulse Rate 112 H 115 H 122 H Respiratory 34 H 22 28 H Rate Blood Pressure 225/137 225/105 193/116 O2 Sat by Pulse 98 98 96 Oximetry Fraction of Inspired Oxygen (FIO2) 03/18/23 03/18/23 03/18/23 05:03 05:06 05:30 Temperature Pulse Rate 118 H 112 H Respiratory 31 H Rate Blood Pressure 135/91 O2 Sat by Pulse 96 Oximetry Fraction of 100 Inspired Oxygen (FIO2) Medical Decision Making - Medical Decision Making Was pt. sent in by a medical professional or institution (ELODIA Nguyen, CLEARANCE CENTER MANAGER, urgent care, hospital, or skilled nursing...) When possible be specific @ -No Did you speak to anyone other than the patient for history (EMS, parent, family, police, friend...)? What history was obtained from this source @ -Yes, EMS Did you review nursing and triage notes (agree or disagree)? Why? @ -I reviewed and agree with nursing and triage notes Were old charts reviewed (outside hosp., previous admission, EMS record, old EKG, old radiological studies, urgent care reports/EKG's, skilled nursing records)? Report findings @ -And previous notes were reviewed Differential Diagnosis (chest pain, altered mental status, abdominal pain women, abdominal pain men, vaginal bleeding, weakness, fever, dyspnea, syncope, headache, dizziness, GI bleed, back pain, seizure, CVA, palpatations, mental health, musculoskeletal)? @ -Differential Dyspnea: Coronary syndrome, arrhythmia, tamponade, asthma, COPD, pulmonary embolism, pneumonia, pneumothorax, pulmonary effusion, anaphylaxis, diabetic ketoacidosis, flailed chest, pulmonary contusion, diaphragmatic rupture, anemia, neuromuscular, this is not meant to be an all-inclusive list. EKG interpreted by me (3pts min.). @ -As above X-rays interpreted by me (1pt min.). @ -No pneumothorax CT interpreted by me (1pt min.). @ -None done U/S interpreted by me (1pt. min.). @ -None done What testing was considered but not performed or refused? (CT, X-rays, U/S, labs)? Why? @ -None What meds were considered but not given or refused? Why? @ -BiPAP was considered but patient could not tolerate the mask Did you discuss the management of the patient with other professionals (professionals i.e. , PA, CLEARANCE CENTER MANAGER, lab, RT, psych nurse, director of social services, paper hanger, teacher, supervisor dog license officer, case advocate)? Give summary @ -Or she staff, RT, admitting physician team Was smoking cessation discussed for >3mins.? @ -No Was critical care preformed (if so, how long)? @ -Yes, 32 minutes Were there social determinants of health that impacted care today? How? (Homelessness, low income, unemployed, alcoholism, drug addiction, transportation, low edu. Level, literacy, decrease access to med. care, intermediate, rehab)? @ -No Was there de-escalation of care discussed even if they declined (Discuss DNR or withdrawal of care, Hospice)? DNR status @ -No What co-morbidities impacted this encounter? (DM, HTN, Smoking, COPD, CAD, Cancer, CVA, ARF, Chemo, Hep., AIDS, mental health diagnosis, sleep apnea, m orbid obesity)? @ -COPD Was patient admitted / discharged? Hospital course, mention meds given and route, prescriptions, significant lab abnormalities, going to OR and other pertinent info. @ -Admit The patient was seen and evaluated, history is obtained from patient. Patient will open sudden respiratory distress on exam he is in moderate respiratory distress, BiPAP was attempted but has not tolerated by the patient he was given Ativan and Zofran without improvement. 3x dose DuoNeb and 125 Solu-Medrol were ordered. Patient had significant improvement after DuoNeb's, feeling much better. Heart rate improved, work of breathing improved. Patient will be admitted to the hospital for COPD exacerbation. Patient accepted by the [facility] hospitalist group with a consult to patient's employment services director Dr. Moses. Undiagnosed new problem with uncertain prognosis? @ -No Drug Therapy requiring intensive monitoring for toxicity (Heparin, Nitro, Insulin, Cardizem)? @ -No Were any procedures done? @ -No Diagnosis/symptom? @ -COPD exacerbation Acute, or Chronic, or Acute on Chronic? @ -Acute Uncomplicated (without systemic symptoms) or Complicated (systemic symptoms)? @ -default Side effects of treatment? @ -No Exacerbation, Progression, or Severe Exacerbation? @ -Exacerbation Poses a threat to life or bodily function? How? (Chest pain, [place], [place], pneumonia, PE, COPD, DKA, ARF, appy, cholecystitis, CVA, Diverticulitis, Homicidal, Suicidal, threat to staff... and all critical care pts) @ -Yes - Lab Data Result diagrams: 03/18/23 05:01 03/18/23 05:01 Lab Results 03/18/23 03/18/23 03/18/23 Range/Units 04:50 05:01 05:01 WBC 5.8 (3.8-10.6) k/uL RBC 5.23 (4.30-5.90) m/uL Hgb 16.3 (13.0-17.5) gm/dL Hct 47.9 (39.0-53.0) % MCV 91.6 (80.0-100.0) fL MCH 31.2 (25.0-35.0) pg MCHC 34.0 (31.0-37.0) g/dL RDW 13.0 (11.5-15.5) % Plt Count 257 (150-450) k/uL MPV 8.8 Neutrophils % 51 % Lymphocytes % 42 % Monocytes % 2 % Eosinophils % 3 % Basophils % 0 % Neutrophils # 3.0 (1.3-7.7) k/uL Lymphocytes # 2.5 (1.0-4.8) k/uL Monocytes # 0.1 (0-1.0) k/uL Eosinophils # 0.2 (0-0.7) k/uL Basophils # 0.0 (0-0.2) k/uL PT 10.0 (9.0-12.0) sec INR 0.9 (<1.2) APTT 22.7 (22.0-30.0) sec Sodium (137-145) mmol/L Potassium (3.5-5.1) mmol/L Chloride (98-107) mmol/L Carbon Dioxide (22-30) mmol/L Anion Gap mmol/L BUN (9-20) mg/dL Creatinine (0.66-1.25) mg/dL Est GFR (CKD-EPI)AfAm (>60 ml/min/1.73 sqM) Est GFR (CKD-EPI)NonAf (>60 ml/min/1.73 sqM) Glucose (74-99) mg/dL POC Glucose (mg/dL) 189 H (70-110) mg/dL POC Glu Tight Rope Walker ID Horacio Santoyo Plasma Lactic Acid Lemuel (0.7-2.0) mmol/L Calcium (8.4-10.2) mg/dL Magnesium (1.6-2.3) mg/dL Total Bilirubin (0.2-1.3) mg/dL AST (17-59) U/L ALT (4-49) U/L Alkaline Phosphatase (38-126) U/L Troponin I (0.000-0.034) ng/mL NT-Pro-B Natriuret Pep pg/mL Total Protein (6.3-8.2) g/dL Albumin (3.5-5.0) g/dL 03/18/23 03/18/23 03/18/23 Range/Units 05:01 05:01 05:01 WBC (3.8-10.6) k/uL RBC (4.30-5.90) m/uL Hgb (13.0-17.5) gm/dL Hct (39.0-53.0) % MCV (80.0-100.0) fL MCH (25.0-35.0) pg MCHC (31.0-37.0) g/dL RDW (11.5-15.5) % Plt Count (150-450) k/uL MPV Neutrophils % % Lymphocytes % % Monocytes % % Eosinophils % % Basophils % % Neutrophils # (1.3-7.7) k/uL Lymphocytes # (1.0-4.8) k/uL Monocytes # (0-1.0) k/uL Eosinophils # (0-0.7) k/uL Basophils # (0-0.2) k/uL PT (9.0-12.0) sec INR (<1.2) APTT (22.0-30.0) sec Sodium 140 (137-145) mmol/L Potassium 4.1 (3.5-5.1) mmol/L Chloride 104 (98-107) mmol/L Carbon Dioxide 25 (22-30) mmol/L Anion Gap 11 mmol/L BUN 15 (9-20) mg/dL Creatinine 0.76 (0.66-1.25) mg/dL Est GFR (CKD-EPI)AfAm >90 (>60 ml/min/1.73 sqM) Est GFR (CKD-EPI)NonAf >90 (>60 ml/min/1.73 sqM) Glucose 209 H (74-99) mg/dL POC Glucose (mg/dL) (70-110) mg/dL POC Glu Tight Rope Walker ID Plasma Lactic Acid Lemuel 2.0 (0.7-2.0) mmol/L Calcium 9.8 (8.4-10.2) mg/dL Magnesium 1.6 (1.6-2.3) mg/dL Total Bilirubin 1.0 (0.2-1.3) mg/dL AST 27 (17-59) U/L ALT 30 (4-49) U/L Alkaline Phosphatase 80 (38-126) U/L Troponin I <0.012 (0.000-0.034) ng/mL NT-Pro-B Natriuret Pep <20 pg/mL Total Protein 7.0 (6.3-8.2) g/dL Albumin 4.4 (3.5-5.0) g/dL - EKG Data -: EKG Interpreted by Wy EKG shows normal: sinus rhythm Rate: tachycardia EKG Comments: EKG interpreted by sd, EKG obtained due to shortness of breath or chest pain, EKG obtained at 4:50 AM, rate is 111 rhythm is they're complex regular tachycardia with P-wave before each QRS is a sinus tachycardia there appear to be some lateral ST depressions may be demand ischemia, no acute infarction. Critical Care Time Critical Care Time: Yes Total Critical Care Time: 32 Disposition Clinical Impression: COPD exacerbation Disposition: ADMITTED IP TO THIS HOSP Condition: Serious Is patient prescribed a controlled substance at d/c from ED?: No Referrals: Inderjit Sims MD [Primary Care Provider] - 1-2 days
[2023-03-18 05:58] LABS: Basophils % (A) 0 %; Eosinophils # (A) 0.2 k/uL (0-0.7); Eosinophils % (A) 3 %; HCT 47.9 % (39.0-53.0); HGB 16.3 gm/dL (13.0-17.5); Lymphocytes # (A) 2.5 k/uL (1.0-4.8); Lymphocytes % (A) 42 %; MCH 31.2 pg (25.0-35.0); MCV 91.6 fL (80.0-100.0); Mean Platelet Volume 8.8; Monocytes # (A) 0.1 k/uL (0-1.0); Monocytes % (A) 2 %; Neutrophils % (A) 51 %; Platelet Count 257 k/uL (150-450); RBC 5.23 m/uL (4.30-5.90); WBC 5.8 k/uL (3.8-10.6)
[2023-03-18 06:05] LABS: ALT 30 U/L (4-49); AST 27 U/L (17-59); African American GFR (CKD) >90 (>60 ml/min/1.73 sqM); Albumin 4.4 g/dL (3.5-5.0); Alkaline Phosphatase 80 U/L (38-126); Anion Gap 11 mmol/L; Blood Urea Nitrogen 15 mg/dL (9-20); Calcium 9.8 mg/dL (8.4-10.2); Carbon Dioxide 25 mmol/L (22-30); Chloride 104 mmol/L (98-107); Glucose 209 mg/dL (74-99); Magnesium 1.6 mg/dL (1.6-2.3); Non-African American GFR(CKD) >90 (>60 ml/min/1.73 sqM); Potassium 4.1 mmol/L (3.5-5.1); Sodium 140 mmol/L (137-145)
[2023-03-18 06:13] LABS: NT-Pro-B-Type Natriuretic Pept <20 pg/mL
--- NOTE | 2023-03-18 06:16 | XR ---
EXAMINATION TYPE: XR chest 1V portable DATE OF EXAM: 03/18/2023 5:48 AM CLINICAL INDICATION:Male, 62 years old with history of respiratory distress; [facility] COMPARISON: Chest radiographs from 03/18/2018 TECHNIQUE: XR chest 1V portable Frontal view of the chest. FINDINGS: Lungs/Pleura: Bibasilar airspace opacities. There is flattening of the diaphragm with increased lucen cy of the lungs. No evidence of pneumothorax, pleural effusion or focal consolidation. Pulmonary vascularity: Unremarkable. Heart/mediastinum: Cardiomediastinal silhouette is unremarkable. Musculoskeletal: No acute osseous pathology. Other findings: None IMPRESSION: 1. Bibasilar airspace opacities which may be increased from prior. Correlate for pneumonia. 2. COPD.
[2023-03-18 06:17] LABS: INR 0.9 (<1.2); Partial Thromboplastin Time 22.7 sec (22.0-30.0)
[2023-03-18] MEDS ORDERED: NALOXONE 0.4 MG/ML 1 ML VIAL IVP PRN (06:20)
[2023-03-18] MEDS ORDERED: predniSONE 20 MG TAB PO SCH (09:00)
[2023-03-18] MEDS ORDERED: diphenhydrAMINE 50 MG/ML 1 ML VIAL IVP STA (12:06)
[2023-03-18] MEDS ORDERED: SODIUM CHLORIDE 0.9% 1,000 ML IV ONE (12:14)
[2023-03-18] MEDS: SODIUM CHLORIDE 0.9% 1,000 ML IV SCH (12:43)
--- NOTE | 2023-03-18 12:49 | P.HPIM ---
History of Present Illness 8-year-old male with a history of COPD and severe emphysema came in with complaints of shortness of breath and was admitted for COPD exacerbation when I examined the patient earlier patient is not wheezing with a grade entry into jorge ateral lung figueroa patient was on oral steroids at that time. Patient subsequently had respiratory distress and ALLERGIC reaction leading to hives and angioedema shortness of breath and hypotension. All these improved after dose of for systemic steroids and Benadryl and Pepcid. Patient was subsequently admitted to stepdown unit for close monitoring. Patient doesn't have effusions doesn't have any leukocytosis chest x-ray showed bilateral lower lobe infiltrates. I ordered pro-calcitonin level. REVIEW OF SYSTEMS: CONSTITUTIONAL: No fever, no malaise, no fatigue. HEENT: No recent visual problems or hearing problems. Denied any sore throat. CARDIOVASCULAR: No chest pain, orthopnea, PND, no palpitations, no syncope. PULMONARY: no hemoptysis. GASTROINTESTINAL: No diarrhea, no nausea, no vomiting, no abdominal pain. NEUROLOGICAL: No headaches, no weakness, no numbness. HEMATOLOGICAL: Denies any bleeding or petechiae. GENITOURINARY: Denies any burning micturition, frequency, or urgency. MUSCULOSKELETAL/RHEUMATOLOGICAL: Denies any joint pain, swelling, or any muscle pain. ENDOCRINE: Denies any polyuria or polydipsia. The rest of the 14-point review of systems is negative. PHYSICAL EXAMINATION: GENERAL: The patient is alert and oriented x3, not in any acute distress. Well developed, well nourished. HEENT: Pupils are round and equally reacting to light. EOMI. No scleral icterus. No conjunctival pallor. Normocephalic, atraumatic. No pharyngeal erythema. No thyromegaly. CARDIOVASCULAR: S1 and S2 present. No murmurs, rubs, or gallops. PULMONARY: Mild wheezing with decreased air entry ABDOMEN: Soft, nontender, nondistended, normoactive bowel sounds. No palpable organomegaly. MUSCULOSKELETAL: No joint swelling or deformity. EXTREMITIES: No cyanosis, clubbing, or pedal edema. NEUROLOGICAL: Gross neurological examination did not reveal any focal deficits. SKIN: No rashes. Assessment and plan -Angina edema, ALLERGIC reaction: Unknown what patient is ALLERGIC to patient did not receive any new medications except prednisone today did not receive any contrast. Continue with oral prednisone supportive care close clinical monitoring. -COPD with mild acute exacerbation which improved at this time, severe emphysema but patient does use any oxygen at home presently doesn't smoke -Type 2 diabetes mellitus blood sugars are expected to go up patient will be instructed scale hold off on oral hypoglycemic agents -Hypertension because of hypotension holding up antidepressant medications patient's present and IV fluids -Bilateral lower lobe infiltrates secondary to atelectasis clinically doesn't appear to have pneumonia will order pro-calcitonin level -Hyperlipidemia DVT prophylaxis: Lovenox Past Medical History Past Medical History: Asthma, COPD, Pneumonia Additional Past Medical History / Comment(s): Other HX: Recent hospitalization 06/25/14-06/28/14 for COPD/RLL pneumonia, hyperglycemia from steroid use. History of Any Multi-Drug Resistant Organisms: None Reported Past Surgical History: Appendectomy Past Anesthesia/Blood Transfusion Reactions: No Reported Reaction Past Psychological History: Anxiety Smoking Status: Never smoker Past Alcohol Use History: Heavy Past Drug Use History: None Reported - Past Family History Father Additional Family Medical History / Comment(s): Father of an aneurysm Mother Family Medical History: Diabetes Mellitus, Thyroid Disorder Medications and Allergies Home Medications Medication Instructions Recorded Confirmed Type Atorvastatin [Lipitor] 80 mg PO HS 03/18/23 03/18/23 History Baclofen 10 mg PO HS 03/18/23 03/18/23 History Glimepiride [Amaryl] 2 mg PO BID 03/18/23 03/18/23 History Losartan Potassium [Cozaar] 100 mg PO DAILY 03/18/23 03/18/23 History Meloxicam [Mobic] 15 mg PO DAILY 03/18/23 03/18/23 History Omeprazole [PriLOSEC] 40 mg PO DAILY 03/18/23 03/18/23 History Tirzepatide [Mounjaro] 2.5 mg SQ TU 03/18/23 03/18/23 History amLODIPine [Norvasc] 10 mg PO DAILY 03/18/23 03/18/23 History metFORMIN HCL [Glucophage] 500 mg PO TID-W/MEALS 03/18/23 03/18/23 History Allergies Allergy/AdvReac Type Severity Reaction Status Date / Time No Known Allergies Allergy Verified 03/18/23 06:45 Physical Exam Vitals: Vital Signs Temp Pulse Resp BP Pulse Ox FiO2 03/18/23 12:37 120 H 38 H 85/49 92 L 03/18/23 12:13 85/63 03/18/23 12:10 112 H 38 H 62/41 95 03/18/23 12:03 106 H 28 H 91/47 94 L 03/18/23 09:02 80 22 142/80 96 03/18/23 07:37 98.2 F 96 20 163/86 97 03/18/23 06:00 103 H 16 103/44 99 03/18/23 05:30 112 H 31 H 135/91 96 03/18/23 05:06 100 03/18/23 05:03 118 H 03/18/23 05:00 122 H 28 H 193/116 96 03/18/23 04:55 115 H 22 225/105 98 03/18/23 04:45 98.2 F 112 H 34 H 225/137 98 Intake and Output 03/17/23 03/18/23 03/18/23 22:59 06:59 14:59 Other: Weight 99.79 kg Results CBC & Chem 7: 03/18/23 05:01 03/18/23 05:01 Labs: Abnormal Lab Results - Last 24 Hours (Table) 03/18/23 03/18/23 Range/Units 04:50 05:01 Glucose 209 H (74-99) mg/dL POC Glucose (mg/dL) 189 H (70-110) mg/dL
[2023-03-18 13:55] LABS: Glucose,Whole Blood 376 mg/dL (70-110)
[2023-03-18] MEDS ORDERED: IPRATROPIUM-ALBUTEROL 3 ML NEB INHALATION PRN (13:58)
[2023-03-18] MEDS ORDERED: Potassium Replacement Protocol 1 EACH MISC MISCELLANE PRN (14:12)
[2023-03-18] MEDS ORDERED: Magnesium Replacement Protocol 1 EACH MISC MISCELLANE PRN (14:12)
[2023-03-18] MEDS ORDERED: Phosphorus Replacement Protoco 1 EACH MISC MISCELLANE PRN (14:12)
[2023-03-18] MEDS ORDERED: SODIUM CHLORIDE 0.9% 1,000 ML IV SCH (14:15)
[2023-03-18] MEDS: INSULIN ASPART (NovoLOG) 100 UNIT/ML VIAL SQ SCH ×3 (14:27→20:45)
[2023-03-18] MEDS: FAMOTIDINE 20 MG TAB PO SCH ×2 (14:33→20:44)
[2023-03-18] MEDS: ALPRAZolam 0.5 MG TAB PO PRN (14:33)
[2023-03-18] MEDS: IPRATROPIUM-ALBUTEROL 3 ML NEB INHALATION SCH ×2 (15:31→19:48)
[2023-03-18 16:18] LABS: C Reactive Protein 1.3 mg/dL (<1.0); Calcium 8.8 mg/dL (8.4-10.2); Magnesium 1.1 mg/dL (1.6-2.3); Phosphorus 4.6 mg/dL (2.5-4.5)
--- NOTE | 2023-03-18 16:24 | P.CNPUL ---
History of Present Illness Consult date: 03/18/23 Reason for consult: dyspnea History of present illness: A 62-year-old male patient with advanced bullous emphysema, oxygen dependent maintain on albuterol/ipratropium nebulized treatments on outpatient basis, presented to the hospital because of worsening shortness of breath. The patient was admitted for acute choked exacerbation. Initially was on 4 L of oxygen by nasal cannula. Subsequently, he progressively became worse and he was placed on a BiPAP which she was unable to tolerate due to claustrophobia. During the course of his stay in the emergency, the patient developed an acute ALLERGIC reaction when he developed hives involving her shoulders and chest and face with diffuse erythema and it was suspected and the patient was having some tongue swelling. He was given IV Solu-Medrol 125 mg 2 and subsequently another dose of 60 mg IV. He is not ALLERGIC to steroids and the patient has received Solu- Medrol in the past during cardiac hospitalizations. He was also given Pepcid and Benadryl. As the patient was getting more short of breath, he was placed on high flow oxygen and currently is on 60 L with an FiO2 of 80%. At the time of my evaluation, the patient was seen in the ICU and he was having labored breathing. He was broken spastic and wheezy. He was getting breathing treatments. He was tachycardic and anxious. He was oxygenating adequately with a pulse ox of 96%. He had diffuse wheezing mainly with exhalation and the patient had marked diminished breath sounds bilaterally. No stridor was appreciated. Tongue was slightly swollen. No lip swelling. No hemodynamic instability. The patient chest x-ray and the patient was found to have COPD with a bullous pocket the right lower lobe. I reviewed the earlier CAT scan of the chest was done several years back and the patient has advanced upper lobe p redominance. Based on FEV1 is in order of 54% of predicted based on spirometry that was done on 05/04/2022. No significant sputum production. No pleurisy. No hemoptysis. Some chronic edema lower extremities are present. No history of any coronary artery disease. He is known to have hypertension. He is an ex- smoker. The patient hasn't been able to afford the medication. As such, he is not receiving any form of maintenance respiratory medications or inhalers. He was able to speak sentences, unable to complete full sentences because of shortness of breath. Noted the patient was recently started on Mounjaro and he took his first units injection recently. He is diabetic and he is also on metformin and Amaryl any subsequent hypertension and hyperlipidemia. He is obese. No altered mentation. Is awake and alert. No signs of any CO2 narcosis. Review of Systems Constitutional: Reports weight gain Eyes: denies as per HPI Ears: deny: decreased hearing, ear discharge, earache, tinnitus Ears, nose, mouth and throat: Reports as per HPI Breasts: absent: as per HPI, gynecomastia Cardiovascular: Reports decreased exercise tolerance, Reports dyspnea on exertion Respiratory: Reports dyspnea, Reports home oxygen, Reports wheezing Gastrointestinal: Reports as per HPI Genitourinary: Reports as per HPI Musculoskeletal: Reports as per HPI Musculoskeletal: absent: ankle pain, ankle stiffness, ankle swelling Integumentary: Reports as per HPI Psychiatric: Reports as per HPI Endocrine: Reports as per HPI, Reports fatigue Hematologic/Lymphatic: Reports as per HPI Allergic/Immunologic: Reports as per HPI Past Medical History Past Medical History: COPD, Pneumonia Additional Past Medical History / Comment(s): Other HX: Recent hospitalization 06/25/14-06/28/14 for COPD/RLL pneumonia, hyperglycemia from steroid use. History of Any Multi-Drug Resistant Organisms: None Reported Past Surgical History: Appendectomy Past Anesthesia/Blood Transfusion Reactions: No Reported Reaction Past Psychological History: Anxiety Smoking Status: Never smoker Past Alcohol Use History: Heavy Past Drug Use History: None Reported - Past Family History Father Additional Family Medical History / Comment(s): Father of an aneurysm Mother Family Medical History: Diabetes Mellitus, Thyroid Disorder Medications and Allergies Home Medications Medication Instructions Recorded Confirmed Type Atorvastatin [Lipitor] 80 mg PO HS 03/18/23 03/18/23 History Baclofen 10 mg PO HS 03/18/23 03/18/23 History Glimepiride [Amaryl] 2 mg PO BID 03/18/23 03/18/23 History Losartan Potassium [Cozaar] 100 mg PO DAILY 03/18/23 03/18/23 History Meloxicam [Mobic] 15 mg PO DAILY 03/18/23 03/18/23 History Omeprazole [PriLOSEC] 40 mg PO DAILY 03/18/23 03/18/23 History Tirzepatide [Mounjaro] 2.5 mg SQ TU 03/18/23 03/18/23 History amLODIPine [Norvasc] 10 mg PO DAILY 03/18/23 03/18/23 History metFORMIN HCL [Glucophage] 500 mg PO TID-W/MEALS 03/18/23 03/18/23 History Allergies Allergy/AdvReac Type Severity Reaction Status Date / Time No Known Allergies Allergy Verified 03/18/23 06:45 Physical Exam Vitals: Vital Signs Temp Pulse Resp BP Pulse Ox FiO2 03/18/23 15:44 117 H 03/18/23 15:33 105 H 03/18/23 15:30 113 H 26 H 128/83 96 80 03/18/23 15:00 109 H 24 140/88 97 80 03/18/23 14:30 115 H 26 H 97 80 03/18/23 14:06 120 H 03/18/23 14:00 97.7 F 112 H 25 H 145/91 95 80 03/18/23 13:55 120 H 03/18/23 13:41 122 H 38 H 120/88 95 03/18/23 13:32 121 H 38 H 125/92 96 03/18/23 13:15 116 H 38 H 148/91 96 03/18/23 13:05 95 77 03/18/23 12:50 116 H 36 H 92 L 03/18/23 12:37 120 H 38 H 85/49 92 L 03/18/23 12:13 85/63 03/18/23 12:10 112 H 38 H 62/41 95 03/18/23 12:03 106 H 28 H 91/47 94 L 03/18/23 09:02 80 22 142/80 96 03/18/23 08:30 86 21 97 03/18/23 08:00 93 L 03/18/23 07:37 98.2 F 96 20 163/86 97 03/18/23 06:00 103 H 16 103/44 99 03/18/23 05:30 112 H 31 H 135/91 96 03/18/23 05:06 100 03/18/23 05:03 118 H 03/18/23 05:00 122 H 28 H 193/116 96 03/18/23 04:55 115 H 22 225/105 98 03/18/23 04:45 98.2 F 112 H 34 H 225/137 98 Intake and Output 03/18/23 03/18/23 03/18/23 06:59 14:59 22:59 Intake Total 50 100 Output Total 800 200 Balance -750 -100 Intake: IV 50 100 Sodium Chloride 0.9% 1, 50 100 000 ml @ 50 mls/hr IV . Q20H [facility] Rx#:[id number] Output: Urine 800 200 Other: Weight 99.79 kg Gen. appearance, the patient is a moderate degree of respiratory distress and currently is on high flow oxygen with a flow of 60 L an FiO2 of 80%. Breathing is labored and the patient is actively bronchospastic and wheezy. No stridor. Head exam was generally normal. There was no scleral icterus or corneal arcus. Mucous membranes were moist. Neck was supple and without jugular venous distension, thyromegaly, or carotid bruits. Carotids were easily palpable bilaterally. There was no adenopathy. Lungs sounds are diminished bilaterally and the patient has prolongation of the exhalation phase of breathing and diffuse expiratory wheezes throughout the lung figueroa. Cardiac exam revealed the PMI to be normally situated and sized. The rhythm was regular and no extrasystoles were noted during several minutes of auscultation. The first and second heart sounds were normal and physiologic splitting of the second heart sound was noted. There were no murmurs, rubs, clicks, or gallops. The patient is tachycardic and he is currently in sinus tachycardia. Abdominal exam revealed normal bowel sounds. The abdomen was soft, non-tender, and without masses, organomegaly, or appreciable enlargement of the abdominal aorta. The patient has an abdominal hernia which is easily reducible at this point in time. Extremities revealed trace edema, no cyanosis or clubbing. Examination of the skin revealed no evidence of significant rashes, suspicious appearing nevi or other concerning lesions. Neurologically, the patient is awake and alert and the patient does not have any focal neurological deficit. Cranial nerves are essentially intact. Results - Laboratory Findings CBC and BMP: 03/18/23 05:01 03/18/23 05:01 PT/INR, D-dimer PT 10.0 sec (9.0-12.0) 03/18/23 05:01 INR 0.9 (<1.2) 03/18/23 05:01 Abnormal lab findings: Abnormal Labs 1003/18/23 03/18/23 04:50 05:01 13:53 Glucose 209 H POC Glucose (mg/dL) 189 H 376 H - Diagnostic Findings Chest x-ray: image reviewed Assessment and Plan Plan: Acute exacerbation of advanced COPD with significant respiratory distress, active bronchospasm wheezing. The patient failed BiPAP therapy due to claustrophobia and the patient is currently on high flow oxygen with 60 L an FiO2 of 80% Acute on chronic hypoxic respiratory failure Bullous emphysema with upper lobe predominance. The patient has a obvious bullous in the right lower lobe as noted on chest x-ray from this current admission, the patient is auction dependent and the patient suffers from chronic hypoxic respiratory failure due to bullous emphysema Acute ALLERGIC reaction/hives. There may be also a mild component of angioedema . Exact cause is not clear. Patient was treated with systemic steroids, epinephrine, Benadryl and Pepcid. Diabetes mellitus type 2 maintained on oral hypoglycemics and recently started on Mounjaro Sinus tachycardia secondary to above Shortness of breath secondary to above Hypertension Hyperlipidemia Plan Admit the patient to intensive care unit Keep the patient on high flow oxygen Continue DuoNeb nebulized treatments every 4 hours and when necessary Start the patient on a combination Perforomist and Pulmicort neb treatments twice a day Continue IV Solu-Medrol 60 mg every 6 hours Check d-dimer Check pro calcitonin Start The patient on Lovenox for DVT prophylaxis Xanax for increased anxiety Continue IV fluids at the rate of 50 mL an hour Pepcid 20 mg by mouth twice a day Sliding-scale insulin coverage Condition is obviously critical and we'll continue to follow.
[2023-03-18] MEDS ORDERED: diphenhydrAMINE 25 MG CAP PO PRN (16:28)
[2023-03-18 16:36] LABS: Appearance,Urine Clear (Clear); Bilirubin,Urine Negative (Negative); Blood,Urine Negative (Negative); Color,Urine Colorless; Glucose,Urine (UA) 4+ (Negative); Ketones,Urine 1+ (Negative); Leukocyte Esterase,Urine Negative (Negative); Nitrite,Urine Negative (Negative); Protein,Urine Trace (Negative); Specific Gravity,Urine 1.025 (1.001-1.035); Urobilinogen,Urine <2.0 mg/dL (<2.0)
[2023-03-18 16:42] LABS: INR 1.3 (<1.2); Partial Thromboplastin Time 23.2 sec (22.0-30.0); Prothrombin Time 12.9 sec (9.0-12.0)
[2023-03-18 16:46] LABS: Glucose,Whole Blood 296 mg/dL (70-110)
--- NOTE | 2023-03-18 17:34 | CA ---
Transthoracic Echo Report Name: Tal Tomlinson Age: 62 Gender: M : 1960 Exam Date: 03/18/2023 14:58 Exam Location: [facility] Ht (in): 70 Wt (lb): 220 Ordering Physician: [place] Zamudio MD Attending/Referring Phys: [employer]ice Geen Perry Procedure CPT: Indications: lv fxn Cardiac Hx: Technical Quality: Technically difficult study Contrast 1: Total Dose (mL): Contrast 2: Total Dose (mL): MEASUREMENTS (Male / Female) Normal Values 2D ECHO LV Diastolic Diameter PLAX 3.8 cm 4.2 - 5.9 / 3.9 - 5.3 cm LV Systolic Diameter PLAX 2.8 cm IVS Diastolic Thickness 1.1 cm 0.6 - 1.0 / 0.6 - 0.9 cm LVPW Diastolic Thickness 1.0 cm 0.6 - 1.0 / 0.6 - 0.9 cm LV Relative Wall Thickness 0.6 RV Internal Dim ED PLAX 2.9 cm LVOT Diameter 2.0 cm Aortic Root Diameter 3.7 cm LV Diastolic Volume MOD BP 48.3 cm??? 67 - 155 / 56 - 104 cm??? LV Systolic Volume MOD BP 18.1 cm??? 22 - 58 / 19 - 49 cm??? LV Ejection Fraction MOD BP 62.5 % >= 55 % LV Cardiac Index MOD BP 1368.8 cm???/min???m??? LV Diastolic Volume MOD 4C 49.1 cm??? LV Systolic Volume MOD 4C 18.4 cm??? LV Ejection Fraction MOD 4C 62.5 % LV Cardiac Index MOD 4C 1391.6 cm???/min???m??? LV Diastolic Length 4C 7.7 cm LV Systolic Length 4C 6.9 cm LV Diastolic Volume MOD 2C 43.7 cm??? LV Systolic Volume MOD 2C 16.5 cm??? LV Ejection Fraction MOD 2C 62.3 % LV Cardiac Index MOD 2C 1235.3 cm???/min???m??? LV Diastolic Length 2C 7.0 cm LV Systolic Length 2C 6.3 cm LA Volume 31.9 cm??? 18 - 58 / 22 - 52 cm??? LA Volume Index 14.2 cm???/m??? 16 - 28 cm???/m??? DOPPLER AV Peak Velocity 184.5 cm/s AV Peak Gradient 13.6 mmHg LVOT Peak Velocity 149.7 cm/s LVOT Peak Gradient 9.0 mmHg LVOT Velocity Time Integral 23.0 cm LVOT Stroke Volume 72.3 cm??? LVOT Stroke Volume Index 33.3 ml/m??? LVOT Cardiac Index 3280.4 cm???/min???m??? AV Area Cont Eq pk 2.6 cm??? MV Peak Velocity 103.5 cm/s MV Peak Gradient 4.3 mmHg MV Mean Velocity 56.3 cm/s MV Mean Gradient 1.5 mmHg MV Velocity Time Integral 29.2 cm Mitral E Point Velocity 60.6 cm/s Mitral A Point Velocity 110.6 cm/s Mitral E to A Ratio 0.5 MV Deceleration Time 308.8 ms MV E' Velocity 9.1 cm/s Mitral E to MV E' Ratio 6.6 TR Peak Velocity 175.6 cm/s TR Peak Gradient 12.3 mmHg Right Ventricular Systolic Press 17.3 mmHg PV Peak Velocity 172.1 cm/s PV Peak Gradient 11.8 mmHg FINDINGS Left Ventricle Normal LV size and wall thickness. Left ventricular ejection fraction is estimated at 60-65 %. Right Ventricle Normal right ventricular size. Right Atrium Normal right atrial size. Left Atrium Normal left atrial size. Mitral Valve Structurally normal mitral valve. Trace MR. Aortic Valve Aortic valve not well visualized. No aortic valve stenosis or regurgitation. Tricuspid Valve Tricuspid valve not well visualized. Pulmonic Valve Pulmonic valve not well visualized. No pulmonic regurgitation. Pericardium Normal pericardium. Aorta AO root mary= 3.7cm CONCLUSIONS Technically difficult and limited parasternal views. Normal LV function Previewed by: Dr. Jordi Masterson MD (Electronically Signed) Final Date: 18 March 2023 17:34
[2023-03-18] MEDS: MAGNESIUM SULFATE-D5W PMX 1 GM in DEXTROSE/WATER 1 100ML.BAG IVPB SCH ×4 (17:41→22:09)
[2023-03-18] MEDS: methylPREDNISolone SOD SUCCI 125 MG/2 ML VIAL IV SCH (17:44)
[2023-03-18] MEDS: FORMOTEROL FUMARATE 20 MCG/2 ML NEBU INHALATION SCH (19:48)
[2023-03-18] MEDS: BUDESONIDE 1 MG/2 ML NEBU INHALATION SCH (19:48)
[2023-03-18 20:13] LABS: Glucose,Whole Blood 253 mg/dL (70-110)
[2023-03-18] MEDS: PANTOPRAZOLE 40 MG/10 ML VIAL IV SCH (20:44)
[2023-03-18] MEDS: ATORVASTATIN 80 MG TAB PO SCH (20:44)
[2023-03-18] MEDS: DOCUSATE 100 MG CAP PO SCH (20:44)
[2023-03-19 04:43] LABS: African American GFR (CKD) >90 (>60 ml/min/1.73 sqM); Anion Gap 9 mmol/L; Blood Urea Nitrogen 15 mg/dL (9-20); Calcium 8.3 mg/dL (8.4-10.2); Carbon Dioxide 22 mmol/L (22-30); Chloride 106 mmol/L (98-107); Glucose 232 mg/dL (74-99); Magnesium 2.3 mg/dL (1.6-2.3); Non-African American GFR(CKD) >90 (>60 ml/min/1.73 sqM); Phosphorus 2.5 mg/dL (2.5-4.5); Potassium 4.7 mmol/L (3.5-5.1); Sodium 137 mmol/L (137-145)
[2023-03-19] MEDS: methylPREDNISolone SOD SUCCI 125 MG/2 ML VIAL IV SCH ×5 (05:48→23:21)
[2023-03-19] MEDS: SODIUM CHLORIDE 0.9% 1,000 ML IV SCH ×2 (05:52→07:53)
[2023-03-19 06:35] LABS: Glucose,Whole Blood 237 mg/dL (70-110)
[2023-03-19] MEDS: INSULIN ASPART (NovoLOG) 100 UNIT/ML VIAL SQ SCH ×4 (06:41→21:23)
[2023-03-19] MEDS: BUDESONIDE 1 MG/2 ML NEBU INHALATION SCH ×2 (07:48→19:58)
[2023-03-19] MEDS: FORMOTEROL FUMARATE 20 MCG/2 ML NEBU INHALATION SCH ×2 (07:48→19:58)
[2023-03-19] MEDS: IPRATROPIUM-ALBUTEROL 3 ML NEB INHALATION SCH ×4 (07:48→19:58)
[2023-03-19] MEDS: ENOXAPARIN 40 MG/0.4 ML SYRINGE SQ SCH (07:52)
[2023-03-19] MEDS: ALPRAZolam 0.5 MG TAB PO PRN (07:52)
[2023-03-19] MEDS: FAMOTIDINE 20 MG TAB PO SCH ×2 (07:52→20:34)
[2023-03-19] MEDS: DOCUSATE 100 MG CAP PO SCH ×2 (07:52→20:35)
[2023-03-19] MEDS: PANTOPRAZOLE 40 MG/10 ML VIAL IV SCH ×2 (07:52→20:35)
--- NOTE | 2023-03-19 08:26 | XR ---
EXAMINATION TYPE: XR chest 1V DATE OF EXAM: 03/19/2023 COMPARISON: 03/19/2023 HISTORY: Shortness of breath TECHNIQUE: Single frontal view of the chest is obtained. FINDINGS: Advanced bilateral bullous emphysematous changes with improving basilar atelectasis or inf iltrate. Heart size enlarged. Ectasia of the aorta. Osseous structures are stable. IMPRESSION: Advanced bullous emphysema with basilar atelectasis or infiltrate improving.
--- NOTE | 2023-03-19 08:51 | P.PN ---
Subjective Progress Note Date: 03/19/23 A 62-year-old male patient with advanced bullous emphysema, oxygen dependent maintain on albuterol/ipratropium nebulized treatments on outpatient basis, presented to the hospital because of worsening shortness of breath. The patient was admitted for acute choked exacerbation. Initially was on 4 L of oxygen by nasal cannula. Subsequently, he progressively became worse and he was placed on a BiPAP which she was unable to tolerate due to claustrophobia. During the course of his stay in the emergency, the patient developed an acute ALLERGIC reaction when he developed hives involving her shoulders and chest and face with diffuse erythema and it was suspected and the patient was having some tongue swelling. He was given IV Solu-Medrol 125 mg 2 and subsequently another dose of 60 mg IV. He is not ALLERGIC to steroids and the patient has received Solu- Medrol in the past during cardiac hospitalizations. He was also given Pepcid and Benadryl. As the patient was getting more short of breath, he was placed on high flow oxygen and currently is on 60 L with an FiO2 of 80%. At the time of my evaluation, the patient was seen in the ICU and he was having labored breathing. He was broken spastic and wheezy. He was getting breathing treatments. He was tachycardic and anxious. He was oxygenating adequately with a pulse ox of 96%. He had diffuse wheezing mainly with exhalation and the pat ient had marked diminished breath sounds bilaterally. No stridor was appreciated. Tongue was slightly swollen. No lip swelling. No hemodynamic instability. The patient chest x-ray and the patient was found to have COPD with a bullous pocket the right lower lobe. I reviewed the earlier CAT scan of the chest was done several years back and the patient has advanced upper lobe predominance. Based on FEV1 is in order of 54% of predicted based on spirometry that was done on 05/04/2022. No significant sputum production. No pleurisy. No hemoptysis. Some chronic edema lower extremities are present. No history of any coronary artery disease. He is known to have hypertension. He is an ex- smoker. The patient hasn't been able to afford the medication. As such, he is not receiving any form of maintenance respiratory medications or inhalers. He was able to speak sentences, unable to complete full sentences because of shortness of breath. Noted the patient was recently started on Mounjaro and he took his first units injection recently. He is diabetic and he is also on metformin and Amaryl any subsequent hypertension and hyperlipidemia. He is obese. No altered mentation. Is awake and alert. No signs of any CO2 narcosis. On today's evaluation of 03/19/2023, the patient has demonstrated marked improvement in his respiratory status. He received [id number] breathing kandis tments and steroids. He was also given Benadryl for his hives. This morning, he is much more comfortable. Occupation is improved. He has been weaned down to 3 L of oxygen by nasal cannula and his current pulse ox is 94-95%. Chest x- ray shows no new findings and he has extensive bullous changes in the upper lobes bilaterally and the large boluses also seen in the right lower lobe. The patient however is moving better air is less bronchospastic and wheezy. No use of accessory muscles of breathing at this point in time. His hives have completely subsided. There is a possibility that ALLERGIC reaction occurred intake of Mounjaro as was his only medications was added and he took the medi cation 2 days prior to his hospital admission. Currently is feeling well. No stridor. Tolerating his diet. No nausea or emesis. No hypotension. Blood work reveals a sodium of 137, potassium is 4.7, BUN is at 50 with a creatinine of 0.6, pro-calcitonin level is at 0.56, d-dimer is nonspecifically elevated. I have no suspicion for pulmonary embolism in this patient. Echocardiogram was completed yesterday showed a preserved LV function without any acute abnormalities. No evidence of any significant pulmonary hypertension. The right-sided structures were essentially within normal limits. For now, the patient is calm and comfortable. Objective - Vital Signs Vital signs: Vital Signs Temp 97.8 F 03/19/23 04:00 Pulse 92 03/19/23 08:09 Resp 18 03/19/23 08:09 BP 130/74 03/19/23 07:00 Pulse Ox 94 L 03/19/23 07:48 FiO2 60 03/19/23 00:00 Intake & Output 03/18/23 03/19/23 03/19/23 18:59 06:59 18:59 Intake Total 1470 660 70 Output Total 1200 1925 225 Balance 270 -1265 -155 Weight 98.7 kg 103.2 kg Intake: IV 270 660 70 Invasive Line 1 10 30 10 Invasive Line 2 10 30 10 Sodium Chloride 0.9% 1, 250 600 50 000 ml @ 50 mls/hr IV . Q20H [facility] Rx#:[id number] Oral 1200 Output: Urine 1200 1925 225 Other: # Bowel Movements 0 - Exam Gen. appearance, the patient is calm and comfortable and currently is on 3 L of oxygen by nasal cannula Head exam was generally normal. There was no scleral icterus or corneal arcus. Mucous membranes were moist. Neck was supple and without jugular venous distension, thyromegaly, or carotid bruits. Carotids were easily palpable bilaterally. There was no adenopathy. Lungs sounds are diminished bilaterally and the patient has prolongation of the exhalation phase of breathing and diffuse expiratory wheezes throughout the lung figueroa. Overall bronchospasm wheezing is improved considerably since yesterday. No stridor. Cardiac exam revealed the PMI to be normally situated and sized. The rhythm was regular and no extrasystoles were noted during several minutes of auscultation. The first and second heart sounds were normal and physiologic splitting of the second heart sound was noted. There were no murmurs, rubs, clicks, or gallops. The patient is tachycardic and he is currently in sinus tachycardia. Abdominal exam revealed normal bowel sounds. The abdomen was soft, non-tender, and without masses, organomegaly, or appreciable enlargement of the abdominal aorta. The patient has an abdominal hernia which is easily reducible at this point in time. Extremities revealed trace edema, no cyanosis or clubbing. Examination of the skin revealed no evidence of hives on morning evaluation Neurologically, the patient is awake and alert and the patient does not have any focal neurological deficit. Cranial nerves are essentially intact. - Labs CBC & Chem 7: 03/18/23 05:01 03/19/23 04:00 Labs: Abnormal Lab Results - Last 24 Hours (Table) 03/18/23 03/18/23 03/18/23 Range/Units 12:46 13:53 15:34 PT 12.9 H (9.0-12.0) sec INR 1.3 H (<1.2) D-Dimer 11.07 H (<0.60) mg/L FEU Glucose (74-99) mg/dL POC Glucose (mg/dL) 376 H (70-110) mg/dL Plasma Lactic Acid Lemuel (0.7-2.0) mmol/L Calcium (8.4-10.2) mg/dL Phosphorus (2.5-4.5) mg/dL Magnesium (1.6-2.3) mg/dL C-Reactive Protein (<1.0) mg/dL Procalcitonin 0.40 H (0.02-0.09) ng/mL Urine Protein (Negative) Urine Glucose (UA) (Negative) Urine Ketones (Negative) 03/18/23 03/18/23 03/18/23 Range/Units 15:34 15:34 16:24 PT (9.0-12.0) sec INR (<1.2) D-Dimer (<0.60) mg/L FEU Glucose (74-99) mg/dL POC Glucose (mg/dL) (70-110) mg/dL Plasma Lactic Acid Lemuel (0.7-2.0) mmol/L Calcium (8.4-10.2) mg/dL Phosphorus 4.6 H (2.5-4.5) mg/dL Magnesium 1.1 L (1.6-2.3) mg/dL C-Reactive Protein 1.3 H (<1.0) mg/dL Procalcitonin 0.56 H (0.02-0.09) ng/mL Urine Protein Trace H (Negative) Urine Glucose (UA) 4+ H (Negative) Urine Ketones 1+ H (Negative) 03/18/23 03/18/23 03/18/23 Range/Units 16:45 18:07 20:12 PT (9.0-12.0) sec INR (<1.2) D-Dimer (<0.60) mg/L FEU Glucose (74-99) mg/dL POC Glucose (mg/dL) 296 H 253 H (70-110) mg/dL Plasma Lactic Acid Lemuel 4.4 H* (0.7-2.0) mmol/L Calcium (8.4-10.2) mg/dL Phosphorus (2.5-4.5) mg/dL Magnesium (1.6-2.3) mg/dL C-Reactive Protein (<1.0) mg/dL Procalcitonin (0.02-0.09) ng/mL Urine Protein (Negative) Urine Glucose (UA) (Negative) Urine Ketones (Negative) 03/18/23 03/19/23 03/19/23 Range/Units 21:11 04:00 06:34 PT (9.0-12.0) sec INR (<1.2) D-Dimer (<0.60) mg/L FEU Glucose 232 H (74-99) mg/dL POC Glucose (mg/dL) 237 H (70-110) mg/dL Plasma Lactic Acid Lemuel 2.4 H* (0.7-2.0) mmol/L Calcium 8.3 L (8.4-10.2) mg/dL Phosphorus (2.5-4.5) mg/dL Magnesium (1.6-2.3) mg/dL C-Reactive Protein (<1.0) mg/dL Procalcitonin (0.02-0.09) ng/mL Urine Protein (Negative) Urine Glucose (UA) (Negative) Urine Ketones (Negative) Assessment and Plan Plan: Acute exacerbation of advanced COPD with significant respiratory distress, ac tive bronchospasm wheezing. The patient failed BiPAP therapy due to claustrophobia and the patient is currently on high flow oxygen with 60 L an FiO2 of 80%, overnight, the patient shows further signs of improvement and the patient is currently weaned down to 3 L of oxygen by nasal cannula. Chest x-ray findings are stable consistent with bullous emphysema Acute on chronic hypoxic respiratory failure, improving, currently on 3 L of oxygen by nasal cannula Bullous emphysema with upper lobe predominance. The patient has a obvious bullous in the right lower lobe as noted on chest x-ray from this current admission, the patient is auction dependent and the patient suffers from chronic hypoxic respiratory failure due to bullous emphysema Acute ALLERGIC reaction/hives. There may be also a mild component of angioedema. Exact cause is not clear. Patient was treated with systemic steroids, epinephrine, Benadryl and Pepcid. Consider the possibility of Mounjaro causing this acute ALLERGIC reaction Diabetes mellitus type 2 maintained on oral hypoglycemics and recently started on Mounjaro Sinus tachycardia secondary to above Shortness of breath secondary to above Hypertension Hyperlipidemia Plan The patient may be chest with a medical surgical floor Keep oxygen at 3 L per minute nasal cannula and continue weaning FiO2 as tolerated Continue DuoNeb nebulized treatments every 4 hours and when necessary Start the patient on a combination Perforomist and Pulmicort neb treatments twice a day Continue IV Solu-Medrol 60 mg every 6 hours Check d-dimer is elevated, and this is a nonspecific finding Check pro calcitonin mildly elevated Continue The patient on Lovenox for DVT prophylaxis Xanax for increased anxiety Continue IV fluids KVO Pepcid 20 mg by mouth twice a day Use Benadryl on a when necessary basis only Sliding-scale insulin coverage We'll continue to follow
[2023-03-19 09:03] LABS: Basophils % (A) 0 %; Eosinophils % (A) 0 %; HGB 14.2 gm/dL (13.0-17.5); Lymphocytes # (A) 0.4 k/uL (1.0-4.8); Lymphocytes % (A) 6 %; MCH 31.7 pg (25.0-35.0); MCHC 33.8 g/dL (31.0-37.0); MCV 93.8 fL (80.0-100.0); Mean Platelet Volume 8.9; Monocytes # (A) 0.1 k/uL (0-1.0); Monocytes % (A) 2 %; Neutrophils # (A) 5.7 k/uL (1.3-7.7); Neutrophils % (A) 91 %; Platelet Count 172 k/uL (150-450); RBC 4.48 m/uL (4.30-5.90); RDW 12.8 % (11.5-15.5); WBC 6.2 k/uL (3.8-10.6)
[2023-03-19 11:37] LABS: Glucose,Whole Blood 255 mg/dL (70-110)
--- NOTE | 2023-03-19 12:18 | P.PN ---
Subjective Progress Note Date: 03/19/23 62-year-old male patient with COPD presented with shortness of breath , advanced bullous emphysema, oxygen dependent maintain on albuterol/ipratropium nebulized treatments on outpatient basis, Initially was on 4 L of oxygen by nasal cannula. Subsequently, he progressively became worse and he was placed on a BiPAP which she was unable to tolerate due to claustrophobia. During the course of his stay in the emergency, the patient developed an acute ALLERGIC reaction when he developed hives involving her shoulders and chest and face with diffuse erythema and it was suspected and the patient was having some tongue swelling. He was given IV Solu-Medrol 125 mg 2 and subsequently another dose of 60 mg IV. He is not ALLERGIC to steroids and the patient has received Solu-Medrol in the past during cardiac hospitalizations. 03/19: Patient seen and evaluated and bedside. Oxygen requirements have i mproved. Patient is on nasal cannula 3 L. Patient says his breathing has improved as rash has improved as well as. Blood work reviewed essentially negative d-dimer was elevated however no suspicion of PE since oxygen requirements have improved dramatically with steroids Objective - Vital Signs Vital signs: Vital Signs Temp 98.2 F 03/19/23 08:00 Pulse 88 03/19/23 11:24 Resp 16 03/19/23 11:24 BP 153/91 03/19/23 08:00 Pulse Ox 95 03/19/23 08:00 FiO2 60 03/19/23 00:00 Intake & Output 03/18/23 03/19/23 03/19/23 18:59 06:59 18:59 Intake Total 0302 716 1517 Output Total 1200 1925 425 Balance 270 -1265 745 Weight 98.7 kg 103.2 kg Intake: IV 270 660 70 Invasive Line 1 10 30 10 Invasive Line 2 10 30 10 Sodium Chloride 0.9% 1, 250 600 50 000 ml @ 50 mls/hr IV . Q20H [facility] Rx#:[id number] Oral 1200 1100 Output: Urine 1200 1925 425 Other: # Bowel Movements 0 - Exam PHYSICAL EXAMINATION: GENERAL: The patient is alert and oriented x3, not in any acute distress. Ill appearance nasal cannula in place HEENT: Pupils are round and equally reacting to light. EOMI. No scleral icterus. No conjunctival pallor. Normocephalic, atraumatic. No pharyngeal erythema. No thyromegaly. CARDIOVASCULAR: S1 and S2 present. No murmurs, rubs, or gallops. PULMONARY: Decreased breath sounds bilaterally ABDOMEN: Soft, nontender, nondistended, normoactive bowel sounds. No palpable organomegaly. MUSCULOSKELETAL: No joint swelling or deformity. EXTREMITIES: No cyanosis, clubbing, or pedal edema. NEUROLOGICAL: Gross neurological examination did not reveal any focal deficits. SKIN: No rashes. - Labs CBC & Chem 7: 03/19/23 04:00 03/19/23 04:00 Labs: Abnormal Lab Results - Last 24 Hours (Table) 03/18/23 03/18/23 03/18/23 Range/Units 12:46 13:53 15:34 Lymphocytes # (1.0-4.8) k/uL PT 12.9 H (9.0-12.0) sec INR 1.3 H (<1.2) D-Dimer 11.07 H (<0.60) mg/L FEU Glucose (74-99) mg/dL POC Glucose (mg/dL) 376 H (70-110) mg/dL Plasma Lactic Acid Lemuel (0.7-2.0) mmol/L Calcium (8.4-10.2) mg/dL Phosphorus (2.5-4.5) mg/dL Magnesium (1.6-2.3) mg/dL C-Reactive Protein (<1.0) mg/dL Procalcitonin 0.40 H (0.02-0.09) ng/mL Urine Protein (Negative) Urine Glucose (UA) (Negative) Urine Ketones (Negative) 03/18/23 03/18/23 03/18/23 Range/Units 15:34 15:34 16:24 Lymphocytes # (1.0-4.8) k/uL PT (9.0-12.0) sec INR (<1.2) D-Dimer (<0.60) mg/L FEU Glucose (74-99) mg/dL POC Glucose (mg/dL) (70-110) mg/dL Plasma Lactic Acid Lemuel (0.7-2.0) mmol/L Calcium (8.4-10.2) mg/dL Phosphorus 4.6 H (2.5-4.5) mg/dL Magnesium 1.1 L (1.6-2.3) mg/dL C-Reactive Protein 1.3 H (<1.0) mg/dL Procalcitonin 0.56 H (0.02-0.09) ng/mL Urine Protein Trace H (Negative) Urine Glucose (UA) 4+ H (Negative) Urine Ketones 1+ H (Negative) 03/18/23 03/18/23 03/18/23 Range/Units 16:45 18:07 20:12 Lymphocytes # (1.0-4.8) k/uL PT (9.0-12.0) sec INR (<1.2) D-Dimer (<0.60) mg/L FEU Glucose (74-99) mg/dL POC Glucose (mg/dL) 296 H 253 H (70-110) mg/dL Plasma Lactic Acid Lemuel 4.4 H* (0.7-2.0) mmol/L Calcium (8.4-10.2) mg/dL Phosphorus (2.5-4.5) mg/dL Magnesium (1.6-2.3) mg/dL C-Reactive Protein (<1.0) mg/dL Procalcitonin (0.02-0.09) ng/mL Urine Protein (Negative) Urine Glucose (UA) (Negative) Urine Ketones (Negative) 03/18/23 03/19/23 03/19/23 Range/Units 21:11 04:00 04:00 Lymphocytes # 0.4 L (1.0-4.8) k/uL PT (9.0-12.0) sec INR (<1.2) D-Dimer (<0.60) mg/L FEU Glucose 232 H (74-99) mg/dL POC Glucose (mg/dL) (70-110) mg/dL Plasma Lactic Acid Lemuel 2.4 H* (0.7-2.0) mmol/L Calcium 8.3 L (8.4-10.2) mg/dL Phosphorus (2.5-4.5) mg/dL Magnesium (1.6-2.3) mg/dL C-Reactive Protein (<1.0) mg/dL Procalcitonin (0.02-0.09) ng/mL Urine Protein (Negative) Urine Glucose (UA) (Negative) Urine Ketones (Negative) 03/19/23 03/19/23 Range/Units 06:34 11:34 Lymphocytes # (1.0-4.8) k/uL PT (9.0-12.0) sec INR (<1.2) D-Dimer (<0.60) mg/L FEU Glucose (74-99) mg/dL POC Glucose (mg/dL) 237 H 255 H (70-110) mg/dL Plasma Lactic Acid Lemuel (0.7-2.0) mmol/L Calcium (8.4-10.2) mg/dL Phosphorus (2.5-4.5) mg/dL Magnesium (1.6-2.3) mg/dL C-Reactive Protein (<1.0) mg/dL Procalcitonin (0.02-0.09) ng/mL Urine Protein (Negative) Urine Glucose (UA) (Negative) Urine Ketones (Negative) Assessment and Plan Assessment: Assessment and plan Acute on chronic hypoxic respiratory failure with acute exacerbation of COPD Severe bullous emphysema ALLERGIC reaction/hives with component of angioedema Diabetes mellitus2 Hypertension Hyperlipidemia * In regards to COPD continue patient on breathing treatments, continue IV Solu- Medrol. Pulmonary medicine following * In regards to history of diabetes mellitus continue patient on correctional insulin. Upon discharge 1 general to be discontinued due to concern for ALLERGY * In regards to history of hypertension patient will be started on amlodipine. Cozaar on hold as well also can contribution to angioedema * In regards to angioedema moiz and Susy discontinued
[2023-03-19] MEDS: amLODIPine 10 MG TAB PO SCH (13:49)
[2023-03-19 16:53] LABS: Glucose,Whole Blood 276 mg/dL (70-110)
[2023-03-19] MEDS: ATORVASTATIN 80 MG TAB PO SCH (20:35)
[2023-03-19 20:45] LABS: Glucose,Whole Blood 313 mg/dL (70-110)
[2023-03-19] MEDS ORDERED: BACLOFEN 10 MG TAB PO SCH (21:00)
[2023-03-20 06:08] LABS: Glucose,Whole Blood 253 mg/dL (70-110)
[2023-03-20] MEDS: INSULIN ASPART (NovoLOG) 100 UNIT/ML VIAL SQ SCH ×2 (06:30→12:14)
[2023-03-20] MEDS: methylPREDNISolone SOD SUCCI 125 MG/2 ML VIAL IV SCH ×2 (06:31→11:51)
[2023-03-20] MEDS: FORMOTEROL FUMARATE 20 MCG/2 ML NEBU INHALATION SCH (07:52)
[2023-03-20] MEDS: IPRATROPIUM-ALBUTEROL 3 ML NEB INHALATION SCH ×2 (07:52→11:32)
[2023-03-20] MEDS: BUDESONIDE 1 MG/2 ML NEBU INHALATION SCH (07:52)
[2023-03-20] MEDS: FAMOTIDINE 20 MG TAB PO SCH (08:10)
[2023-03-20] MEDS: ENOXAPARIN 40 MG/0.4 ML SYRINGE SQ SCH (08:10)
[2023-03-20] MEDS: amLODIPine 10 MG TAB PO SCH (08:10)
[2023-03-20] MEDS: DOCUSATE 100 MG CAP PO SCH (08:10)
[2023-03-20] MEDS: PANTOPRAZOLE 40 MG/10 ML VIAL IV SCH (08:11)
[2023-03-20 08:50] VITALS: BP 170/78; RESP 18; TEMP 98.1
[2023-03-20] MEDS ORDERED: METOPROLOL SUCCINATE (ER) 25 MG TAB.ER.24H PO SCH (09:00)
[2023-03-20 10:04] LABS: Basophils # (A) 0.01 X 10*3/uL (0.00-0.10); Basophils % (A) 0.1 %; Eosinophils # (A) 0 X 10*3/uL (0.04-0.35); Eosinophils % (A) 0 %; HGB 13.7 d/dL (13.0-17.0); Lymphocytes % (A) 6.5 %; MCH 30.6 pg (27.0-32.0); MCHC 33.4 d/dL (32.0-37.0); MCV 91.5 FL (80.0-97.0); Mean Platelet Volume 10.8 FL (9.5-12.2); Monocytes % (A) 3.9 %; NRBC Per 100 WBC 0 X 10*3/uL (0.00-0.01); Neutrophils # (A) 6.85 X 10*3/uL (1.80-7.70); Neutrophils % (A) 88.6 %; Platelet Count 174 X 10*3/uL (140-440); RBC 4.48 X 10*6/uL (4.40-5.60); RDW 12.6 % (11.5-14.5); WBC 7.73 X 10*3/uL (4.50-10.00)
[2023-03-20 10:46] LABS: BUN/Creat Ratio 22.62 Ratio (12.00-20.00); Blood Urea Nitrogen 18.1 mg/dL (9.0-27.0); Calcium 9.3 mg/dL (8.7-10.3); Carbon Dioxide 24.2 mmol/L (21.6-31.8); Chloride 107 mmol/L (96-109); Glucose 286 mg/dL (70-110); Potassium 4.9 mmol/L (3.5-5.5); Sodium 140 mmol/L (135-145)
[2023-03-20 11:59] LABS: Glucose,Whole Blood 259 mg/dL (70-110)
--- NOTE | 2023-03-20 12:26 | P.PN ---
Subjective Progress Note Date: 03/20/23 A 62-year-old male patient with advanced bullous emphysema, oxygen dependent maintain on albuterol/ipratropium nebulized treatments on outpatient basis, presented to the hospital because of worsening shortness of breath. The patient was admitted for acute choked exacerbation. Initially was on 4 L of oxygen by nasal cannula. Subsequently, he progressively became worse and he was placed on a BiPAP which she was unable to tolerate due to claustrophobia. During the course of his stay in the emergency, the patient developed an acute ALLERGIC reaction when he developed hives involving her shoulders and chest and face with diffuse erythema and it was suspected and the patient was having some tongue swelling. He was given IV Solu-Medrol 125 mg 2 and subsequently another dose of 60 mg IV. He is not ALLERGIC to steroids and the patient has received Solu- Medrol in the past during cardiac hospitalizations. He was also given Pepcid and Benadryl. As the patient was getting more short of breath, he was placed on high flow oxygen and currently is on 60 L with an FiO2 of 80%. At the time of my evaluation, the patient was seen in the ICU and he was having labored breathing. He was broken spastic and wheezy. He was getting breathing treatments. He was tachycardic and anxious. He was oxygenating adequately with a pulse ox of 96%. He had diffuse wheezing mainly with exhalation and the pat ient had marked diminished breath sounds bilaterally. No stridor was appreciated. Tongue was slightly swollen. No lip swelling. No hemodynamic instability. The patient chest x-ray and the patient was found to have COPD with a bullous pocket the right lower lobe. I reviewed the earlier CAT scan of the chest was done several years back and the patient has advanced upper lobe predominance. Based on FEV1 is in order of 54% of predicted based on spirometry that was done on 05/04/2022. No significant sputum production. No pleurisy. No hemoptysis. Some chronic edema lower extremities are present. No history of any coronary artery disease. He is known to have hypertension. He is an ex- smoker. The patient hasn't been able to afford the medication. As such, he is not receiving any form of maintenance respiratory medications or inhalers. He was able to speak sentences, unable to complete full sentences because of shortness of breath. Noted the patient was recently started on Mounjaro and he took his first units injection recently. He is diabetic and he is also on metformin and Amaryl any subsequent hypertension and hyperlipidemia. He is obese. No altered mentation. Is awake and alert. No signs of any CO2 narcosis. On today's evaluation of 03/19/2023, the patient has demonstrated marked improvement in his respiratory status. He received [id number] breathing kandis tments and steroids. He was also given Benadryl for his hives. This morning, he is much more comfortable. Occupation is improved. He has been weaned down to 3 L of oxygen by nasal cannula and his current pulse ox is 94-95%. Chest x- ray shows no new findings and he has extensive bullous changes in the upper lobes bilaterally and the large boluses also seen in the right lower lobe. The patient however is moving better air is less bronchospastic and wheezy. No use of accessory muscles of breathing at this point in time. His hives have completely subsided. There is a possibility that ALLERGIC reaction occurred intake of Mounjaro as was his only medications was added and he took the medi cation 2 days prior to his hospital admission. Currently is feeling well. No stridor. Tolerating his diet. No nausea or emesis. No hypotension. Blood work reveals a sodium of 137, potassium is 4.7, BUN is at 50 with a creatinine of 0.6, pro-calcitonin level is at 0.56, d-dimer is nonspecifically elevated. I have no suspicion for pulmonary embolism in this patient. Echocardiogram was completed yesterday showed a preserved LV function without any acute abnormalities. No evidence of any significant pulmonary hypertension. The right-sided structures were essentially within normal limits. For now, the patient is calm and comfortable. On 03/20/2023, the patient is back to baseline. No high speed no shortness of breath. Pulse ox is also improved and the patient was able to maintain a pulse ox above 90% with activity and ambulation while being on room air oxygen. Remains on bronchodilators. Remains on steroids. No complaints. Objective - Vital Signs Vital signs: Vital Signs Temp 98.1 F 03/20/23 07:08 Pulse 88 03/20/23 08:10 Resp 18 03/20/23 07:08 BP 170/78 03/20/23 07:08 Pulse Ox 98 03/20/23 07:08 FiO2 60 03/19/23 00:00 Intake & Output 03/19/23 03/20/23 03/20/23 18:59 06:59 18:59 Intake Total 2210 Output Total 425 Balance 1785 Intake: IV 70 Invasive Line 1 10 Invasive Line 2 10 Sodium Chloride 0.9% 1, 50 000 ml @ 50 mls/hr IV . Q20H [facility] Rx#:[id number] Intake, IV Titration 800 Amount Sodium Chloride 0.9% 1, 800 000 ml @ 100 mls/hr IV . Q10H [facility] Rx#:[id number] Oral 1340 Output: Urine 425 Other: # Voids 2 - Exam Gen. appearance, the patient is calm and comfortable and currently is on 3 L of oxygen by nasal cannula Head exam was generally normal. There was no scleral icterus or corneal arcus. Mucous membranes were moist. Neck was supple and without jugular venous distension, thyromegaly, or carotid bruits. Carotids were easily palpable bilaterally. There was no adenopathy. Lungs sounds are diminished bilaterally and the patient has prolongation of the exhalation phase of breathing and diffuse expiratory wheezes throughout the lung figueroa. Overall bronchospasm wheezing is improved considerably since yesterday. No stridor. Cardiac exam revealed the PMI to be normally situated and sized. The rhythm was regular and no extrasystoles were noted during several minutes of auscultation. The first and second heart sounds were normal and physiologic splitting of the second heart sound was noted. There were no murmurs, rubs, clicks, or gallops. The patient is tachycardic and he is currently in sinus tachycardia. Abdominal exam revealed normal bowel sounds. The abdomen was soft, non-tender, and without masses, organomegaly, or appreciable enlargement of the abdominal aorta. The patient has an abdominal hernia which is easily reducible at this point in time. Extremities revealed trace edema, no cyanosis or clubbing. Examination of the skin revealed no evidence of hives on morning evaluation Neurologically, the patient is awake and alert and the patient does not have any focal neurological deficit. Cranial nerves are essentially intact. - Labs CBC & Chem 7: 03/20/23 06:02 03/20/23 06:02 Labs: Abnormal Lab Results - Last 24 Hours (Table) 03/19/23 03/19/23 03/19/23 Range/Units 11:34 16:52 20:43 Lymphocytes # (0.90-5.00) X 10*3/uL Eosinophils # (0.04-0.35) X 10*3/uL BUN/Creatinine Ratio (12.00-20.00) Ratio Glucose (70-110) mg/dL POC Glucose (mg/dL) 255 H 276 H 313 H (70-110) mg/dL C-Reactive Protein (0.00-0.80) mg/dL 03/20/23 03/20/23 03/20/23 Range/Units 06:02 06:02 06:07 Lymphocytes # 0.50 L (0.90-5.00) X 10*3/uL Eosinophils # 0 L (0.04-0.35) X 10*3/uL BUN/Creatinine Ratio 22.62 H (12.00-20.00) Ratio Glucose 286 H (70-110) mg/dL POC Glucose (mg/dL) 253 H (70-110) mg/dL C-Reactive Protein 2.80 H (0.00-0.80) mg/dL Microbiology - Last 24 Hours (Table) 03/19/23 11:12 Gram Stain - Preliminary Sputum Assessment and Plan Plan: Acute exacerbation of advanced COPD with significant respiratory distress, active bronchospasm wheezing, recovered Acute on chronic hypoxic respiratory failure, recovered Bullous emphysema with upper lobe predominance. The patient has a obvious bullous in the right lower lobe as noted on chest x-ray from this current admission, the patient is auction dependent and the patient suffers from chronic hypoxic respiratory failure due to bullous emphysema Acute ALLERGIC reaction/hives. There may be also a mild component of angioedema. Exact cause is not clear. Patient was treated with systemic steroids, epinephrine, Benadryl and Pepcid. Consider the possibility of Mounjaro causing this acute ALLERGIC reaction, recovered Diabetes mellitus type 2 maintained on oral hypoglycemics and recently started on Mounjaro Sinus tachycardia secondary to above Shortness of breath secondary to above Hypertension Hyperlipidemia Plan Oxygenation is improved The patient should be able to discharged home on prednisone burst taper and DuoNeb [facility] Follow-up with us in our office Clinically much improved Avoid Mounjaro intake in the future
--- NOTE | 2023-03-20 12:32 | P.DS ---
Providers Date of admission: 03/18/23 06:22 Expected date of discharge: 03/20/23 Attending physician: Emeka Lara Consults: 03/18/23 06:20 Consult Physician Routine Consulting Provider: Shayne Moses Consult Reason/Comments: COPD Do you want consulting provider notified?: Yes, Notify in am Primary care physician: Javier Mae [facility] Course: 62-year-old male patient with COPD presented with shortness of breath , advanced bullous emphysema, oxygen dependent maintain on albuterol/ipratropium nebulized treatments on outpatient basis, Initially was on 4 L of oxygen by nasal cannula. Subsequently, he progressively became worse and he was placed on a BiPAP which she was unable to tolerate due to claustrophobia. During the course of his stay in the emergency, the patient developed an acute ALLERGIC reaction when he developed hives involving her shoulders and chest and face with diffuse erythema and it was suspected and the patient was having some tongue swelling. He was given IV Solu-Medrol 125 mg 2 and subsequently another dose of 60 mg IV. He is not ALLERGIC to steroids and the patient has received Solu-Medrol in the past during cardiac hospitalizations. 03/19: Patient seen and evaluated and bedside. Oxygen requirements have improved. Patient is on nasal cannula 3 L. Patient says his breathing has improved as rash has improved as well as. Blood work reviewed essentially negative d-dimer was elevated however no suspicion of PE since oxygen requirements have improved dramatically with steroids 03/20: Patient seen and evaluated bedside, patient has been weaned down to room air, patient given instructions regarding possible ALLERGIC to moujaro or Cozaar. Hence both medications discontinued. EpiPen provided. Prescription for prednisone tapered dose provided, prescription for DuoNeb given sister at bedside QUESTIONS ANSWERED AND DISCHARGED HOME PHYSICAL EXAMINATION: GENERAL: The patient is alert and oriented x3, not in any acute distress. Well developed, well nourished. HEENT: Pupils are round and equally reacting to light. EOMI. No scleral icterus. No conjunctival pallor. Normocephalic, atraumatic. No pharyngeal erythema. No thyromegaly. CARDIOVASCULAR: S1 and S2 present. No murmurs, rubs, or gallops. PULMONARY: Chest is clear to auscultation, no wheezing or crackles. ABDOMEN: Soft, nontender, nondistended, normoactive bowel sounds. No palpable organomegaly. MUSCULOSKELETAL: No joint swelling or deformity. EXTREMITIES: No cyanosis, clubbing, or pedal edema. NEUROLOGICAL: Gross neurological examination did not reveal any focal deficits. SKIN: No rashes. Assessment: Assessment and plan Acute on chronic hypoxic respiratory failure with acute exacerbation of COPD Severe bullous emphysema ALLERGIC reaction/hives with component of angioedema Diabetes mellitus2 Hypertension Hyperlipidemia * In regards to COPD , placed on tapered dose of prednisone, DuoNeb provided, outpatient follow-up PCP * In regards to history of diabetes mellitus continue patient on correctional insulin. Upon dischargemaujaro to be discontinued due to concern for ALLERGY, continue metformin and the glimepride, follow-up with PCP for alternate * In regards to history of hypertension patient will be started on amlodipine. Cozaar on hold as well also can contribution to angioedema * In regards to angioedema moujaro and Cozaar discontinued, started on metoprolol, EpiPen provided Patient Condition at Discharge: Serious Plan - Discharge Summary Discharge Rx Participant: No New Discharge Prescriptions: New predniSONE [Deltasone] See Taper PO DAILY 12 Days #19 tab Ipratropium-Albuterol Nebulize [Duoneb 0.5 mg-3 mg/3 ml Soln] 3 ml INHALATION Q6HR 30 Days #360 ml EPINEPHrine (Auto Inject) [Epipen] 0.3 mg IM ONCE PRN #1 each PRN Reason: Anaphylaxis Metoprolol Succinate (ER) [Toprol XL] 25 mg PO DAILY 30 Days #30 tab Continue metFORMIN HCL [Glucophage] 500 mg PO TID-W/MEALS Glimepiride [Amaryl] 2 mg PO BID Omeprazole [PriLOSEC] 40 mg PO DAILY Baclofen 10 mg PO HS amLODIPine [Norvasc] 10 mg PO DAILY Atorvastatin [Lipitor] 80 mg PO HS Meloxicam [Mobic] 15 mg PO DAILY Discontinued Tirzepatide [Mounjaro] 2.5 mg SQ TU Losartan Potassium [Cozaar] 100 mg PO DAILY Discharge Medication List Atorvastatin [Lipitor] 80 mg PO HS 03/18/23 [History] Baclofen 10 mg PO HS 03/18/23 [History] Glimepiride [Amaryl] 2 mg PO BID 03/18/23 [History] Meloxicam [Mobic] 15 mg PO DAILY 03/18/23 [History] Omeprazole [PriLOSEC] 40 mg PO DAILY 03/18/23 [History] amLODIPine [Norvasc] 10 mg PO DAILY 03/18/23 [History] metFORMIN HCL [Glucophage] 500 mg PO TID-W/MEALS 03/18/23 [History] EPINEPHrine (Auto Inject) [Epipen] 0.3 mg IM ONCE PRN #1 each 03/20/23 [Rx] Ipratropium-Albuterol Nebulize [Duoneb 0.5 mg-3 mg/3 ml Soln] 3 ml INHALATION Q6HR 30 Days #360 ml 03/20/23 [Rx] Metoprolol Succinate (ER) [Toprol XL] 25 mg PO DAILY 30 Days #30 tab 03/20/23 [Rx] predniSONE [Deltasone] See Taper PO DAILY 12 Days #19 tab 03/20/23 [Rx] Follow up Appointment(s)/Referral(s): Shayne Moses MD [STAFF PHYSICIAN] - 1 Week Inderjit Sims MD [Primary Care Provider] - 1-2 days Discharge Disposition: HOME SELF-CARE
--- NOTE | 2023-03-20 12:53 | XR ---
EXAMINATION TYPE: XR chest 1V DATE OF EXAM: 03/20/2023 6:43 AM CLINICAL INDICATION:Male, 62 years old with history of dyspnea; [facility] COMPARISON: Chest radiographs from 03/19/2023 and before TECHNIQUE: XR chest 1V Frontal view of the chest. FINDINGS: Lungs/Pleura: Lungs again appear hyperinflated with interstitial coarsening, findings suggestive of m oderate to severe bullous emphysema. Stable residual bibasilar opacities, could be due to atelectasis or scarring, versus pneumonia. Pulmonary vascularity: Unremarkable. Heart/mediastinum: Cardiomediastinal silhouette is stable. Borderline heart size. Mildly tortuous ao rta. Musculoskeletal: Osseous structures appear grossly unchanged. Mild endplate spurring in the spine. Other findings: None Lines/Tubes: None. IMPRESSION: Similar appearance of advanced bullous emphysema, with residual bibasilar opacities which could be du e to atelectasis or scarring, versus pneumonia.
[2023-03-20 13:10] VITALS: PULSE 78
== END 2023-03-20 15:24 | disposition home or self-care (01) | DRG 190 ==
LOC: EC 04:44 → 4SSUR 06:22 → 3SCARD 12:36 → 2SICU 13:53 → 4SSUR 03-19 13:20
PROVIDERS: ADMIT Hospitalist; ATTEND Hospitalist
PROC: 5A09357 Assistance with Respiratory Ventilation, Less than 24 Consecutive Hours, Continuous Positive Airway Pressure (ICD-10-PCS; principal; 2023-03-18)
DX: J43.9 Emphysema, unspecified (principal); J96.21 Acute and chronic respiratory failure with hypoxia; J98.11 Atelectasis; Z20.822 Contact with and (suspected) exposure to COVID-19; E11.9 Type 2 diabetes mellitus without complications; T78.3XXA Angioneurotic edema, initial encounter; E78.5 Hyperlipidemia, unspecified; Z68.32 Body mass index [BMI] 32.0-32.9, adult; J45.909 Unspecified asthma, uncomplicated; R00.0 Tachycardia, unspecified; X58.XXXA Exposure to other specified factors, initial encounter; E66.9 Obesity, unspecified; I95.9 Hypotension, unspecified; F40.240 Claustrophobia; Z79.1 Long term (current) use of non-steroidal anti-inflammatories (NSAID); Z79.4 Long term (current) use of insulin; Z99.81 Dependence on supplemental oxygen; Z79.899 Other long term (current) drug therapy; Z79.84 Long term (current) use of oral hypoglycemic drugs; Z87.01 Personal history of pneumonia (recurrent); Z88.8 Allergy status to other drugs, medicaments and biological substances
CPT/HCPCS: 36415; 71045; 80048; 80053; 81003; 82310; 83605; 83735; 83880; 84100; 84145; 84484; 85025; 85379; 85610; 85730; 86140; 87070; 87205; 87636; 93005; 93306; 94640; 96361; 96372; 96374; 96375; 96376; 99291

== ENCOUNTER 2023-05-27 04:17 | Inpatient (IN) | payer MEDICARE, OTHER ==
[2023-05-27] MEDS ORDERED: ALBUTEROL NEBULIZED 2.5 MG/3 ML INHALATION STA (04:30)
[2023-05-27] MEDS ORDERED: IPRATROPIUM 0.5 MG/2.5 ML NEBU INHALATION STA (04:30)
[2023-05-27] MEDS ORDERED: methylPREDNISolone SOD SUCCI 125 MG/2 ML VIAL IV STA (04:30)
[2023-05-27 04:59] LABS: Basophils # (A) 0.1 k/uL (0-0.2); Basophils % (A) 1 %; Eosinophils # (A) 0.6 k/uL (0-0.7); Eosinophils % (A) 7 %; HCT 45.6 % (39.0-53.0); HGB 15.5 gm/dL (13.0-17.5); Lymphocytes # (A) 1.6 k/uL (1.0-4.8); Lymphocytes % (A) 21 %; MCH 31.1 pg (25.0-35.0); MCV 91.5 fL (80.0-100.0); Monocytes # (A) 0.3 k/uL (0-1.0); Monocytes % (A) 4 %; Neutrophils # (A) 5.1 k/uL (1.3-7.7); Neutrophils % (A) 65 %; Platelet Count 186 k/uL (150-450); RBC 4.98 m/uL (4.30-5.90); RDW 12.7 % (11.5-15.5); WBC 7.8 k/uL (3.8-10.6)
--- NOTE | 2023-05-27 05:14 | ED ---
General Adult HPI - General Chief complaint: Shortness of Breath Stated complaint: Difficulty Breathing Time Seen by Provider: 05/27/23 04:22 Source: patient, RN notes reviewed, old records reviewed Mode of arrival: wheelchair Limitations: no limitations - History of Present Illness Initial comments: 62-year-old male with increased cough and dyspnea, history of COPD. Patient is in moderate to severe respiratory distress upon arrival. He is hypoxic, tachypneic. He is unable to give a detailed history but denies fever. Denies chest pain. States his symptoms have progressed over the past several days. - Related Data Home Medications Medication Instructions Recorded Confirmed Atorvastatin [Lipitor] 80 mg PO HS 03/18/23 03/18/23 Baclofen 10 mg PO HS 03/18/23 03/18/23 Glimepiride [Amaryl] 2 mg PO BID 03/18/23 03/18/23 Meloxicam [Mobic] 15 mg PO DAILY 03/18/23 03/18/23 Omeprazole [PriLOSEC] 40 mg PO DAILY 03/18/23 03/18/23 amLODIPine [Norvasc] 10 mg PO DAILY 03/18/23 03/18/23 metFORMIN HCL [Glucophage] 500 mg PO TID-W/MEALS 03/18/23 03/18/23 Previous Rx's Medication Instructions Recorded EPINEPHrine (Auto Inject) [Epipen] 0.3 mg IM ONCE PRN #1 each 03/20/23 Ipratropium-Albuterol Nebulize 3 ml INHALATION Q6HR 30 Days #360 03/20/23 [Duoneb 0.5 mg-3 mg/3 ml Soln] ml Metoprolol Succinate (ER) [Toprol 25 mg PO DAILY 30 Days #30 tab 03/20/23 XL] predniSONE [Deltasone] See Taper PO DAILY 12 Days #19 tab 03/20/23 Allergies Allergy/AdvReac Type Severity Reaction Status Date / Time losartan [From Cozaar] Allergy Anaphylaxis Verified 03/20/23 12:23 tirzepatide [From Mounjaro] Allergy Anaphylaxis Verified 03/19/23 11:50 hay Allergy Anaphylaxis Uncoded 03/18/23 19:36 Review of Systems ROS Statement: Those systems with pertinent positive or pertinent negative responses have been documented in the HPI. ROS Other: All systems not noted in ROS Statement are negative. Past Medical History Past Medical History: Asthma, COPD, Diabetes Mellitus, Hyperlipidemia, Hypertension, Pneumonia Additional Past Medical History / Comment(s): Other HX: Recent hospitalization 06/25/14-06/28/14 for COPD/RLL pneumonia, hyperglycemia from steroid use. Asthma History of Any Multi-Drug Resistant Organisms: None Reported Past Surgical History: Appendectomy, Tonsillectomy Past Anesthesia/Blood Transfusion Reactions: No Reported Reaction Past Psychological History: Anxiety Smoking Status: Former smoker Past Alcohol Use History: Heavy Past Drug Use History: None Reported - Past Family History Father Additional Family Medical History / Comment(s): Father of an aneurysm Mother Family Medical History: Diabetes Mellitus, Thyroid Disorder General Exam Limitations: no limitations General appearance: alert, in distress Head exam: Present: atraumatic Eye exam: Present: normal appearance, PERRL ENT exam: Present: normal exam Neck exam: Present: normal inspection. Absent: tenderness Respiratory exam: Present: respiratory distress, wheezes, accessory muscle use, decreased breath sounds, prolonged expiratory Cardiovascular Exam: Present: regular rate, normal rhythm GI/Abdominal exam: Absent: distended, tenderness Extremities exam: Present: normal inspection, normal capillary refill. Absent: pedal edema Neurological exam: Present: alert, oriented X3, CN II-XII intact. Absent: motor sensory deficit Skin exam: Present: warm, dry, intact Course Vital Signs 05/27/23 05/27/23 05/27/23 04:18 04:31 04:36 Temperature 97.9 F Pulse Rate 102 H 96 Respiratory 36 H 30 H Rate O2 Sat by Pulse 86 L 90 L Oximetry 05/27/23 05/27/23 04:52 05:19 Temperature Pulse Rate 88 92 Respiratory Rate O2 Sat by Pulse Oximetry Medical Decision Making - Medical Decision Making Was pt. sent in by a medical professional or institution (, PA, MOBILITY DEVELOPER, urgent care, hospital, or custodial...) When possible be specific @ -No Did you speak to anyone other than the patient for history (EMS, parent, family, police, friend...)? What history was obtained from this source @ -No Did you review nursing and triage notes (agree or disagree)? Why? @ -I reviewed and agree with nursing and triage notes Were old charts reviewed (outside hosp., previous admission, EMS record, old EKG, old radiological studies, urgent care reports/EKG's, custodial records)? Report findings @ -No old charts were reviewed Differential Diagnosis (chest pain, altered mental status, abdominal pain women, abdominal pain men, vaginal bleeding, weakness, fever, dyspnea, syncope, headache, dizziness, GI bleed, back pain, seizure, CVA, palpatations, mental health, musculoskeletal)? @ Differential Dyspnea: Coronary syndrome, arrhythmia, tamponade, asthma, COPD, pulmonary embolism, pneumonia, pneumothorax, pulmonary effusion, anaphylaxis, diabetic ketoacidosis, flailed chest, pulmonary contusion, diaphragmatic rupture, anemia, neuromuscular, this is not meant to be an all-inclusive list. EKG interpreted by me (3pts min.). @ -[Sinus rhythm rate of 90, NH interval 152, QRS duration 101, QTC [address] segment elevation. X-rays interpreted by me (1pt min.). @ -[X-ray showing severe bullous emphysema without significant change compared to prior. CT interpreted by me (1pt min.). @ -None done U/S interpreted by me (1pt. min.). @ -None done What testing was considered but not performed or refused? (CT, X-rays, U/S, labs)? Why? @ -None What meds were considered but not given or refused? Why? @ -None Did you discuss the management of the patient with other professionals (professionals i.e. , PA, MOBILITY DEVELOPER, lab, RT, psych nurse, addiction social worker, teacher resource, teacher, executive officer, caseworker protective services)? Give summary @ -[EMH Was smoking cessation discussed for >3mins.? @ -No Was critical care preformed (if so, how long)? @Yes, 35 minutes Were there social determinants of health that impacted care today? How? (Homelessness, low income, unemployed, alcoholism, drug addiction, transportation, low edu. Level, literacy, decrease access to med. care, detention, rehab)? @ -No Was there de-escalation of care discussed even if they declined (Discuss DNR or withdrawal of care, Hospice)? DNR status @ -No What co-morbidities impacted this encounter? (DM, HTN, Smoking, COPD, CAD, Cancer, CVA, ARF, Chemo, Hep., AIDS, mental health diagnosis, sleep apnea, morbid obesity)? @COPD Was patient admitted / discharged? Hospital course, mention meds given and route, prescriptions, significant lab abnormalities, going to OR and other pertinent info. @ -[8-year-old male presenting in extremis, tachypneic, hypoxic, diffuse wheezi ng in respiratory distress. Patient given multiple doses of albuterol. He's also given Atrovent and steroids. He cannot tolerate the BiPAP. He does have some improvement with initial treatment. X-ray showing stable bullous emphysema. Patient has hypomagnesemia which is replaced in the emergency department. He's admitted for treatment of COPD exacerbation. Undiagnosed new problem with uncertain prognosis? @ -No Drug Therapy requiring intensive monitoring for toxicity (Heparin, Nitro, Insulin, Cardizem)? @ -No Were any procedures done? @ -No Diagnosis/symptom? @COPD exacerbation Acute, or Chronic, or Acute on Chronic? @Acute on chronic Uncomplicated (without systemic symptoms) or Complicated (systemic symptoms)? @ -default Side effects of treatment? @ -No Exacerbation, Progression, or Severe Exacerbation? @ -No Poses a threat to life or bodily function? How? (Chest pain, [place], [place], pneumonia, PE, COPD, DKA, ARF, appy, cholecystitis, CVA, Diverticulitis, Homicidal, Suicidal, threat to staff... and all critical care pts) @Yes, COPD - Lab Data Result diagrams: 05/27/23 04:36 05/27/23 04:36 Lab Results 05/27/23 05/27/23 05/27/23 Range/Units 04:36 04:36 04:36 WBC 7.8 (3.8-10.6) k/uL RBC 4.98 (4.30-5.90) m/uL Hgb 15.5 (13.0-17.5) gm/dL Hct 45.6 (39.0-53.0) % MCV 91.5 (80.0-100.0) fL MCH 31.1 (25.0-35.0) pg MCHC 34.0 (31.0-37.0) g/dL RDW 12.7 (11.5-15.5) % Plt Count 186 (150-450) k/uL MPV 8.0 Neutrophils % 65 % Lymphocytes % 21 % Monocytes % 4 % Eosinophils % 7 % Basophils % 1 % Neutrophils # 5.1 (1.3-7.7) k/uL Lymphocytes # 1.6 (1.0-4.8) k/uL Monocytes # 0.3 (0-1.0) k/uL Eosinophils # 0.6 (0-0.7) k/uL Basophils # 0.1 (0-0.2) k/uL PT 10.8 (10.0-12.5) sec INR 1.0 (<1.2) APTT 24.8 (22.0-30.0) sec Sodium 139 (137-145) mmol/L Potassium 4.2 (3.5-5.1) mmol/L Chloride 102 (98-107) mmol/L Carbon Dioxide 23 (22-30) mmol/L Anion Gap 14 mmol/L BUN 12 (9-20) mg/dL Creatinine 0.60 L (0.66-1.25) mg/dL Est GFR (CKD-EPI)AfAm >90 (>60 ml/min/1.73 sqM) Est GFR (CKD-EPI)NonAf >90 (>60 ml/min/1.73 sqM) Glucose 272 H (74-99) mg/dL Plasma Lactic Acid Lmeuel (0.7-2.0) mmol/L Calcium 9.8 (8.4-10.2) mg/dL Magnesium 1.3 L (1.6-2.3) mg/dL Total Bilirubin 1.0 (0.2-1.3) mg/dL AST 21 (17-59) U/L ALT 29 (4-49) U/L Alkaline Phosphatase 78 (38-126) U/L Troponin I (0.000-0.034) ng/mL Total Protein 7.2 (6.3-8.2) g/dL Albumin 4.7 (3.5-5.0) g/dL 05/27/23 05/27/23 Range/Units 04:36 04:36 WBC (3.8-10.6) k/uL RBC (4.30-5.90) m/uL Hgb (13.0-17.5) gm/dL Hct (39.0-53.0) % MCV (80.0-100.0) fL MCH (25.0-35.0) pg MCHC (31.0-37.0) g/dL RDW (11.5-15.5) % Plt Count (150-450) k/uL MPV Neutrophils % % Lymphocytes % % Monocytes % % Eosinophils % % Basophils % % Neutrophils # (1.3-7.7) k/uL Lymphocytes # (1.0-4.8) k/uL Monocytes # (0-1.0) k/uL Eosinophils # (0-0.7) k/uL Basophils # (0-0.2) k/uL PT (10.0-12.5) sec INR (<1.2) APTT (22.0-30.0) sec Sodium (137-145) mmol/L Potassium (3.5-5.1) mmol/L Chloride (98-107) mmol/L Carbon Dioxide (22-30) mmol/L Anion Gap mmol/L BUN (9-20) mg/dL Creatinine (0.66-1.25) mg/dL Est GFR (CKD-EPI)AfAm (>60 ml/min/1.73 sqM) Est GFR (CKD-EPI)NonAf (>60 ml/min/1.73 sqM) Glucose (74-99) mg/dL Plasma Lactic Acid Lemuel 2.5 H* (0.7-2.0) mmol/L Calcium (8.4-10.2) mg/dL Magnesium (1.6-2.3) mg/dL Total Bilirubin (0.2-1.3) mg/dL AST (17-59) U/L ALT (4-49) U/L Alkaline Phosphatase (38-126) U/L Troponin I 0.020 (0.000-0.034) ng/mL Total Protein (6.3-8.2) g/dL Albumin (3.5-5.0) g/dL Critical Care Time Critical Care Time: Yes Total Critical Care Time: 35 Disposition Clinical Impression: COPD exacerbation, Acute exacerbation of chronic obstructive airways disease Disposition: ADMITTED IP TO THIS HOSP Condition: Stable Is patient prescribed a controlled substance at d/c from ED?: No Referrals: Inderjit Sims MD [Primary Care Provider] - 1-2 days Time of Disposition: 05:54
[2023-05-27 05:21] LABS: ALT 29 U/L (4-49); AST 21 U/L (17-59); African American GFR (CKD) >90 (>60 ml/min/1.73 sqM); Albumin 4.7 g/dL (3.5-5.0); Alkaline Phosphatase 78 U/L (38-126); Anion Gap 14 mmol/L; Blood Urea Nitrogen 12 mg/dL (9-20); Calcium 9.8 mg/dL (8.4-10.2); Carbon Dioxide 23 mmol/L (22-30); Chloride 102 mmol/L (98-107); Glucose 272 mg/dL (74-99); Magnesium 1.3 mg/dL (1.6-2.3); Non-African American GFR(CKD) >90 (>60 ml/min/1.73 sqM); Potassium 4.2 mmol/L (3.5-5.1); Sodium 139 mmol/L (137-145); Total Protein 7.2 g/dL (6.3-8.2)
[2023-05-27 05:25] LABS: Partial Thromboplastin Time 24.8 sec (22.0-30.0); Prothrombin Time 10.8 sec (10.0-12.5)
[2023-05-27] MEDS ORDERED: ACETAMINOPHEN TAB 325 MG TAB PO PRN (05:50)
[2023-05-27] MEDS ORDERED: NALOXONE 0.4 MG/ML 1 ML VIAL IVP PRN (05:50)
[2023-05-27] MEDS ORDERED: IPRATROPIUM-ALBUTEROL 3 ML NEB INHALATION PRN (05:50)
[2023-05-27] MEDS: SODIUM CHLORIDE 0.9% 1,000 ML IV SCH ×2 (05:53→22:30)
[2023-05-27] MEDS: MAGNESIUM SULFATE-D5W PMX 1 GM in DEXTROSE/WATER 1 100ML.BAG IVPB SCH ×4 (05:53→17:24)
--- NOTE | 2023-05-27 07:31 | XR ---
EXAMINATION TYPE: XR chest 1V portable DATE OF EXAM: 05/27/2023 HISTORY: Shortness of breath. COMPARISON: 03/20/2023 TECHNIQUE: Single view of the chest is submitted. FINDINGS: Demonstrated are scattered senescent parenchymal change. Severe emphysematous bulla redemonstrated. Patchy infiltrates at the lung bases may reflect underlying pneumonia. The heart is stable. Hilar and mediastinal structures are within normal limits. Degenerative changes are seen of the dorsal spine. IMPRESSION: 1. Patchy infiltrates at the lung bases may reflect underlying pneumonia.
[2023-05-27] MEDS: SYMBICORT 160-4.5 MCG INHALER INHALATION SCH ×2 (07:39→21:23)
[2023-05-27] MEDS: IPRATROPIUM-ALBUTEROL 3 ML NEB INHALATION SCH ×4 (07:40→21:23)
--- NOTE | 2023-05-27 08:13 | P.CNPUL ---
History of Present Illness Consult date: 05/27/23 Requesting physician: Tal Toth Reason for consult: COPD Chief complaint: Shortness of breath and cough History of present illness: I am seeing this patient in consultation today 05/27/2023 in the emergency room for suspected acute COPD exacerbation. Patient is a 62-year-old male with past medical history significant for advanced bullous emphysema, hypertension, type 2 diabetes[address] Patient does follow Dr[address] Moses in the pulmonary office. He did have a recent hospital admission for ALLERGIC reaction, possibly to a new diabetic medication that he was started on and also COPD exacerbation, back in March of this year. Patient returned to the emergency room earlier this morning with a chief complaint of progressively worsening shortness of breath over the last several days. Admits to having a persistent cough with minimal amount of clear sputum. Denies any fevers, chest pain, hemoptysis. Patient only takes [facility] outpatient basis. No maintenance inhaler mostly because he refuses to take anything other than Symbicort, and his insurance does not cover this medication. He is afraid of having ALLERGIC reaction. He is currently sitting up in bed, on 3 L/m nasal cannula, in no acute distress. He states that he started feeling better from when he came in. Chest x-ray shows a possible patchy left basilar infiltrate. Afebrile. CBC on arrival is unremarkable. No leukocytosis. BMP was also unremarkable. Glucose was elevated. Troponin 0.02. Vital signs are stable. Review of Systems REVIEW OF SYSTEMS: CONSTITUTIONAL: Denies any recent significant weight loss or weight gain. EYES: Denies change in vision. EARS, NOSE, MOUTH, THROAT: Denies headaches, denies sore throat. CARDIOVASCULAR: Denies chest pain, palpitations or syncopal episodes. RESPIRATORY: see HPI GASTROINTESTINAL: Denies change in appetite, abdominal pain, nausea and vomiting, or diarrhea GENITOURINARY: Denies hematuria, denies infections. MUSKULOSKELETAL: Denies pain, denies swelling. INTEGUMENTARY: Denies rash, denies eczema. NEUROLOGICAL: Denies recent memory loss, no recent seizure activity. PSYCHIATRIC: Denies anxiety, denies depression. HEMATOLOGIC/LYMPHATIC: Denies anemia, denies enlarged lymph node Past Medical History Past Medical History: Asthma, COPD, Diabetes Mellitus, Hyperlipidemia, Hypertension, Pneumonia Additional Past Medical History / Comment(s): Other HX: Recent hospitalization 1/12/15-06/28/14 for COPD/RLL pneumonia, hyperglycemia from steroid use. Asthma History of Any Multi-Drug Resistant Organisms: None Reported Past Surgical History: Appendectomy, Tonsillectomy Past Anesthesia/Blood Transfusion Reactions: No Reported Reaction Past Psychological History: Anxiety Smoking Status: Former smoker Past Alcohol Use History: Heavy Past Drug Use History: None Reported - Past Family History Father Additional Family Medical History / Comment(s): Father of an aneurysm Mother Family Medical History: Diabetes Mellitus, Thyroid Disorder Medications and Allergies Home Medications Medication Instructions Recorded Confirmed Type Atorvastatin [Lipitor] 80 mg PO HS 03/18/23 03/18/23 History Baclofen 10 mg PO HS 03/18/23 03/18/23 History Glimepiride [Amaryl] 2 mg PO BID 03/18/23 03/18/23 History Meloxicam [Mobic] 15 mg PO DAILY 03/18/23 03/18/23 History Omeprazole [PriLOSEC] 40 mg PO DAILY 03/18/23 03/18/23 History amLODIPine [Norvasc] 10 mg PO DAILY 03/18/23 03/18/23 History metFORMIN HCL [Glucophage] 500 mg PO TID-W/MEALS 03/18/23 03/18/23 History EPINEPHrine (Auto Inject) [Epipen] 0.3 mg IM ONCE PRN #1 each 03/20/23 Rx Ipratropium-Albuterol Nebulize 3 ml INHALATION Q6HR 30 Days #360 03/20/23 Rx [Duoneb 0.5 mg-3 mg/3 ml Soln] ml Metoprolol Succinate (ER) [Toprol 25 mg PO DAILY 30 Days #30 tab 03/20/23 Rx XL] predniSONE [Deltasone] See Taper PO DAILY 12 Days #19 tab 03/20/23 Rx Allergies Allergy/AdvReac Type Severity Reaction Status Date / Time losartan [From Cozaar] Allergy Anaphylaxis Verified 03/20/23 12:23 tirzepatide [From Mounjaro] Allergy Anaphylaxis Verified 03/19/23 11:50 hay Allergy Anaphylaxis Uncoded 03/18/23 19:36 Physical Exam Vitals: Vital Signs Temp Pulse Resp BP Pulse Ox 05/27/23 07:42 94 L 05/27/23 07:41 84 05/27/23 06:48 92 16 129/87 95 05/27/23 05:54 93 16 157/85 96 05/27/23 05:19 92 05/27/23 04:52 88 05/27/23 04:36 96 05/27/23 04:31 30 H 90 L 05/27/23 04:18 97.9 F 102 H 36 H 86 L Intake and Output 05/26/23 05/27/23 05/27/23 22:59 06:59 14:59 Other: Weight 99.79 kg GENERAL EXAM: Alert, 62-year-old obese male, comfortable in no apparent distress. HEAD: Normocephalic and atraumatic EYES: Normal reaction of pupils, equal size. NOSE: Clear with pink turbinates. THROAT: No erythema or exudates. NECK: No masses, no JVD. CHEST: No chest wall deformity. LUNGS: Equal air entry with expiratory wheezes heard throughout. On 3 L/m nasal cannula. No conversational dyspnea or accessory muscle use.. CVS: S1 and S2 normal with no audible murmur, regular rhythm. No extra heart sounds ABDOMEN: No hepatosplenomegaly, active bowel sounds, no guarding or rigidity. SPINE: No scoliosis or deformity SKIN: No rashes CENTRAL NERVOUS SYSTEM: No focal deficits, tone is normal in all 4 extremities. EXTREMITIES: There is no peripheral edema, clubbing, or cyanosis. Peripheral pulses are intact. Results - Laboratory Findings CBC and BMP: 05/27/23 04:36 05/27/23 04:36 PT/INR, D-dimer PT 10.8 sec (10.0-12.5) 05/27/23 04:36 INR 1.0 (<1.2) 05/27/23 04:36 Abnormal lab findings: Abnormal Labs 05/27/23 05/27/23 04:36 04:36 Creatinine 0.60 L Glucose 272 H Plasma Lactic Acid Lemuel 2.5 H* Magnesium 1.3 L - Diagnostic Findings Chest x-ray: image reviewed Assessment and Plan Assessment: Acute hypoxemic respiratory failure, secondary to acute COPD exacerbation and possible left lower lobe community acquired pneumonia. Chest x-ray shows possible developing left lower lobe infiltrate versus atelectasis. Severe bullous emphysema Diabetes mellitus type 2 Hypertension Hyperlipidemia Obesity with a BMI of 31.6 kg/m Former tobacco smoker Plan: Patient's medications, labs, chest x-ray reviewed Continue supplemental oxygen Start patient on combination of DuoNeb's, Symbicort inhaler and IV Solu-Medrol We will empirically cover the patient for this possible left lower lobe i nfiltrate. Check procalcitonin level We will continue to follow I have personally seen and examined the patient, performed the documentation and the assessment and plan as written. Number of minutes spent on the visit:20 Time with Patient: Greater than 30
[2023-05-27] MEDS ORDERED: NON FORMULARY DRUG (Losartan Potassium [Losartan Potassium] 100 MG Tablet) PO SCH (09:00)
[2023-05-27] MEDS: GLIMEPIRIDE 2 MG TAB PO SCH ×2 (10:00→22:23)
[2023-05-27] MEDS: amLODIPine 10 MG TAB PO SCH (10:00)
[2023-05-27] MEDS: PANTOPRAZOLE 40 MG TABLET PO SCH (10:00)
[2023-05-27] MEDS: AZITHROMYCIN 500 MG TAB PO SCH (10:00)
[2023-05-27] MEDS: MELOXICAM 7.5 MG TAB PO SCH (10:00)
[2023-05-27] MEDS: methylPREDNISolone SOD SUCCI 125 MG/2 ML VIAL IV SCH ×3 (10:03→22:23)
--- NOTE | 2023-05-27 14:59 | P.HPIM ---
History of Present Illness H&P Date: 05/27/23 History of present illness; patient is 62-year-old gentleman with past medical significant for COPD, hypertension, type 2 diabetes, who presented to the ER because of worsening shortness of breath for the last few days. Patient stated he has been noticing that his breathing is getting worse over the last few days, patient getting short of breath on slight exertion. He also complaining of productive cough, phlegm was clear. Denied any chest pain. Denied any fever or chills. No complaints of nausea, vomiting or abdominal pain. Denies any swelling of feet. Because his worsening shortness of breath, patient came to the ER Initial lab work done in the ER showed WBC 7.8, hemoglobin 15.5, platelet count 186, sodium 139, potassium 4.2, BUNs 12, creatinine 0.60, magnesium 1.3 EKG done in the ER showed heart rate of 90, no ST segment elevation or depression seen, no T-wave inversions seen. Chest x-ray done in the ER showed patchy infiltrate at the lung bases may reflect underlying pneumonia Patient admitted to internal medicine service REVIEW OF SYSTEMS: CONSTITUTIONAL: No fever, no malaise, no fatigue. HEENT: No recent visual problems or hearing problems. Denied any sore throat. CARDIOVASCULAR: As mentioned in HPI PULMONARY: Mentioned in HPI GASTROINTESTINAL: No diarrhea, no nausea, no vomiting, no abdominal pain. NEUROLOGICAL: No headaches, no weakness, no numbness. HEMATOLOGICAL: Denies any bleeding or petechiae. GENITOURINARY: Denies any burning micturition, frequency, or urgency. MUSCULOSKELETAL/RHEUMATOLOGICAL: Denies any joint pain, swelling, or any muscle pain. ENDOCRINE: Denies any polyuria or polydipsia. The rest of the 14-point review of systems is negative. PHYSICAL EXAMINATION: GENERAL: The patient is alert and oriented x3, not in any acute distress. Well developed, well nourished. HEENT: Pupils are round and equally reacting to light. EOMI. No scleral icterus. No conjunctival pallor. Normocephalic, atraumatic. No pharyngeal erythema. No thyromegaly. CARDIOVASCULAR: S1 and S2 present. No murmurs, rubs, or gallops. PULMONARY: Chest is clear to auscultation, no wheezing or crackles. ABDOMEN: Soft, nontender, nondistended, normoactive bowel sounds. No palpable organomegaly. MUSCULOSKELETAL: No joint swelling or deformity. EXTREMITIES: No cyanosis, clubbing, or pedal edema. NEUROLOGICAL: Gross neurological examination did not reveal any focal deficits. SKIN: No rashes. Assessment and plan Acute hypoxic respiratory failure Acute COPD exacerbation Diabetes mellitus type 2 Hypertension Hyperlipidemia Obesity with a BMI of 31.6 kg/m Former tobacco smoker Hypomagnesemia Lactic acidosis Monitor vital signs Monitor CBC Monitor CMP Continue telemetry monitoring Ordered COVID-19 PCR ordered influenza A, influenza B, RSV Continue breathing treatment continue IV Solu-Medrol Check pro-Blayne Continue IV Rocephin and azithromycin Pulmonology consulted Resume home meds Labs and medication were reviewed.. Continue same treatment. Continue with symptomatic treatment. Resume home medication. Monitor labs and vitals. DVT and GI prophylaxis. Further recommendations as per clinical course of the patient Dictation was produced using [employer] / [employer] dictation software. please excuse any grammatical, word or spelling errors. Past Medical History Past Medical History: Asthma, COPD, Diabetes Mellitus, Hyperlipidemia, Hypertension, Pneumonia Additional Past Medical History / Comment(s): Other HX: Recent hospitalization 06/25/14-06/28/14 for COPD/RLL pneumonia, hyperglycemia from steroid use. Asthma History of Any Multi-Drug Resistant Organisms: None Reported Past Surgical History: Appendectomy, Tonsillectomy Past Anesthesia/Blood Transfusion Reactions: No Reported Reaction Past Psychological History: Anxiety Smoking Status: Former smoker Past Alcohol Use History: Heavy Past Drug Use History: None Reported - Past Family History Father Additional Family Medical History / Comment(s): Father of an aneurysm Mother Family Medical History: Diabetes Mellitus, Thyroid Disorder Medications and Allergies Home Medications Medication Instructions Recorded Confirmed Type Atorvastatin [Lipitor] 80 mg PO HS 03/18/23 05/27/23 History Baclofen 10 mg PO HS 03/18/23 05/27/23 History Glimepiride [Amaryl] 2 mg PO BID 03/18/23 05/27/23 History Meloxicam [Mobic] 15 mg PO DAILY 03/18/23 05/27/23 History Omeprazole [PriLOSEC] 40 mg PO DAILY 03/18/23 05/27/23 History amLODIPine [Norvasc] 10 mg PO DAILY 03/18/23 05/27/23 History metFORMIN HCL [Glucophage] 500 mg PO TID-W/MEALS 03/18/23 05/27/23 History EPINEPHrine (Auto Inject) [Epipen] 0.3 mg IM ONCE PRN #1 each 03/20/23 05/27/23 Rx Ipratropium-Albuterol Nebulize 3 ml INHALATION RT-QID 05/27/23 05/27/23 History [Duoneb 0.5 mg-3 mg/3 ml Soln] Losartan Potassium 100 mg PO DAILY 05/27/23 05/27/23 History Allergies Allergy/AdvReac Type Severity Reaction Status Date / Time losartan [From Cozaar] Allergy Anaphylaxis Verified 05/27/23 08:01 tirzepatide [From Mounjaro] Allergy Anaphylaxis Verified 05/27/23 08:01 hay Allergy Anaphylaxis Uncoded 05/27/23 08:01 Physical Exam Vitals: Vital Signs Temp Pulse Resp BP Pulse Ox 05/27/23 09:24 90 18 124/83 94 L 05/27/23 07:53 82 05/27/23 07:51 80 22 129/79 96 05/27/23 07:42 94 L 05/27/23 07:41 84 05/27/23 06:48 92 16 129/87 95 05/27/23 05:54 93 16 157/85 96 05/27/23 05:19 92 05/27/23 04:52 88 05/27/23 04:36 96 05/27/23 04:31 30 H 90 L 05/27/23 04:18 97.9 F 102 H 36 H 86 L Intake and Output 05/26/23 05/27/23 05/27/23 22:59 06:59 14:59 Other: Weight 99.79 kg Results CBC & Chem 7: 05/27/23 04:36 05/27/23 04:36 Labs: Abnormal Lab Results - Last 24 Hours (Table) 05/27/23 05/27/23 Range/Units 04:36 04:36 Creatinine 0.60 L (0.66-1.25) mg/dL Glucose 272 H (74-99) mg/dL Plasma Lactic Acid Lemuel 2.5 H* (0.7-2.0) mmol/L Magnesium 1.3 L (1.6-2.3) mg/dL
[2023-05-27] MEDS: metFORMIN 500 MG TAB PO SCH ×2 (15:46→17:46)
[2023-05-27 17:46] LABS: Glucose,Whole Blood 339 mg/dL (70-110)
[2023-05-27] MEDS ORDERED: DEXTROSE 50% SYRINGE 50 ML IVP PRN ×2 (17:54)
[2023-05-27 20:28] LABS: Glucose,Whole Blood 363 mg/dL (70-110)
[2023-05-27] MEDS ORDERED: ATORVASTATIN 80 MG TAB PO SCH (21:00)
[2023-05-27] MEDS ORDERED: BACLOFEN 10 MG TAB PO SCH (21:00)
[2023-05-27] MEDS: INSULIN ASPART (NovoLOG) 100 UNIT/ML VIAL SQ SCH (22:24)
[2023-05-28] MEDS: methylPREDNISolone SOD SUCCI 125 MG/2 ML VIAL IV SCH ×2 (03:38→09:45)
[2023-05-28] MEDS: SODIUM CHLORIDE 0.9% 1,000 ML IV SCH (03:39)
[2023-05-28 06:08] LABS: Glucose,Whole Blood 269 mg/dL (70-110)
[2023-05-28] MEDS: INSULIN ASPART (NovoLOG) 100 UNIT/ML VIAL SQ SCH ×2 (06:39→12:14)
[2023-05-28] MEDS: PANTOPRAZOLE 40 MG TABLET PO SCH (06:39)
[2023-05-28] MEDS: metFORMIN 500 MG TAB PO SCH ×2 (06:39→12:14)
[2023-05-28] MEDS: IPRATROPIUM-ALBUTEROL 3 ML NEB INHALATION SCH ×2 (08:02→11:29)
[2023-05-28] MEDS: SYMBICORT 160-4.5 MCG INHALER INHALATION SCH (08:03)
[2023-05-28 08:25] LABS: HCT 43.9 % (39.0-53.0); HGB 14.5 gm/dL (13.0-17.5); MCH 30.8 pg (25.0-35.0); MCV 93.3 fL (80.0-100.0); Mean Platelet Volume 8.5; Platelet Count 199 k/uL (150-450); RDW 12.8 % (11.5-15.5); WBC 10.3 k/uL (3.8-10.6)
[2023-05-28 08:39] LABS: ALT 26 U/L (4-49); AST 20 U/L (17-59); African American GFR (CKD) >90 (>60 ml/min/1.73 sqM); Albumin 4.4 g/dL (3.5-5.0); Alkaline Phosphatase 79 U/L (38-126); Anion Gap 15 mmol/L; Blood Urea Nitrogen 20 mg/dL (9-20); Calcium 9.5 mg/dL (8.4-10.2); Carbon Dioxide 20 mmol/L (22-30); Chloride 103 mmol/L (98-107); Glucose 304 mg/dL (74-99); Magnesium 2.1 mg/dL (1.6-2.3); Non-African American GFR(CKD) >90 (>60 ml/min/1.73 sqM); Potassium 4.7 mmol/L (3.5-5.1); Sodium 138 mmol/L (137-145); Total Protein 6.8 g/dL (6.3-8.2)
[2023-05-28 09:43] VITALS: BP 137/76; RESP 18; TEMP 97.8
[2023-05-28] MEDS: MELOXICAM 7.5 MG TAB PO SCH (09:46)
[2023-05-28] MEDS: amLODIPine 10 MG TAB PO SCH (09:46)
[2023-05-28] MEDS: AZITHROMYCIN 500 MG TAB PO SCH (09:46)
[2023-05-28] MEDS: GLIMEPIRIDE 2 MG TAB PO SCH (09:46)
[2023-05-28 11:20] LABS: Glucose,Whole Blood 340 mg/dL (70-110)
[2023-05-28 11:54] VITALS: PULSE 76
--- NOTE | 2023-05-28 12:10 | P.DS ---
Providers Date of admission: 05/27/23 05:50 Expected date of discharge: 05/28/23 Attending physician: Emeka Lara Consults: 05/27/23 05:50 Consult Physician Routine Consulting Provider: Shayne Moses Consult Reason/Comments: COPD Do you want consulting provider notified?: Yes Primary care physician: Levi Jansen [facility] Course: Discharge diagnoses; Acute hypoxic respiratory failure Acute COPD exacerbation Diabetes mellitus type 2 Hypertension Hyperlipidemia Obesity with a BMI of 31.6 kg/m Former tobacco smoker Hypomagnesemia Lactic acidosis Hospital course; patient is 62-year-old gentleman with past medical significant for COPD, hypertension, type 2 diabetes, who presented to the ER because of worsening shortness of breath for the last few days. Patient stated he has been noticing that his breathing is getting worse over the last few days, patient getting short of breath on slight exertion. He also complaining of productive cough, phlegm was clear. Denied any chest pain. Denied any fever or chills. No complaints of nausea, vomiting or abdominal pain. Denies any swelling of feet. Because his worsening shortness of breath, patient came to the ER Initial lab work done in the ER showed WBC 7.8, hemoglobin 15.5, platelet count 186, sodium 139, potassium 4.2, BUNs 12, creatinine 0.60, magnesium 1.3 EKG done in the ER showed heart rate of 90, no ST segment elevation or depression seen, no T-wave inversions seen. Chest x-ray done in the ER showed patchy infiltrate at the lung bases may reflect underlying pneumonia Patient admitted to internal medicine service 05/28. Patient seen and examined. Currently not requiring any oxygen. Patient breathing has improved. Pro RUDDY was normal. Pulmonology cleared the patient for discharge. Being discharged on tapering dose of prednisone and 1 more day of azithromycin. PHYSICAL EXAMINATION: GENERAL: The patient is alert and oriented x3, not in any acute distress. Well developed, well nourished. HEENT: Pupils are round and equally reacting to light. EOMI. No scleral icterus. No conjunctival pallor. Normocephalic, atraumatic. No pharyngeal erythema. No thyromegaly. CARDIOVASCULAR: S1 and S2 present. No murmurs, rubs, or gallops. PULMONARY: Chest is clear to auscultation, no wheezing or crackles. ABDOMEN: Soft, nontender, nondistended, normoactive bowel sounds. No palpable organomegaly. MUSCULOSKELETAL: No joint swelling or deformity. EXTREMITIES: No cyanosis, clubbing, or pedal edema. NEUROLOGICAL: Gross neurological examination did not reveal any focal deficits. SKIN: No rashes. Dictation was produced using [employer] dictation software. please excuse any grammatical, word or spelling errors. Patient Condition at Discharge: Stable Plan - Discharge Summary Discharge Rx Participant: No New Discharge Prescriptions: New predniSONE 10 mg PO DAILY 8 Days #20 tab Azithromycin [Zithromax] 500 mg PO DAILY 1 Days #1 tab Continue metFORMIN HCL [Glucophage] 500 mg PO TID-W/MEALS Glimepiride [Amaryl] 2 mg PO BID Omeprazole [PriLOSEC] 40 mg PO DAILY Baclofen 10 mg PO HS amLODIPine [Norvasc] 10 mg PO DAILY EPINEPHrine (Auto Inject) [Epipen] 0.3 mg IM ONCE PRN #1 each PRN Reason: Anaphylaxis Losartan Potassium 100 mg PO DAILY Atorvastatin [Lipitor] 80 mg PO HS Meloxicam [Mobic] 15 mg PO DAILY Ipratropium-Albuterol Nebulize [Duoneb 0.5 mg-3 mg/3 ml Soln] 3 ml INHALATION RT-QID Discharge Medication List Atorvastatin [Lipitor] 80 mg PO HS 03/18/23 [History] Baclofen 10 mg PO HS 03/18/23 [History] Glimepiride [Amaryl] 2 mg PO BID 03/18/23 [History] Meloxicam [Mobic] 15 mg PO DAILY 03/18/23 [History] Omeprazole [PriLOSEC] 40 mg PO DAILY 03/18/23 [History] amLODIPine [Norvasc] 10 mg PO DAILY 03/18/23 [History] metFORMIN HCL [Glucophage] 500 mg PO TID-W/MEALS 03/18/23 [History] EPINEPHrine (Auto Inject) [Epipen] 0.3 mg IM ONCE PRN #1 each 03/20/23 [Rx] Ipratropium-Albuterol Nebulize [Duoneb 0.5 mg-3 mg/3 ml Soln] 3 ml INHALATION RT-QID 05/27/23 [History] Losartan Potassium 100 mg PO DAILY 05/27/23 [History] Azithromycin [Zithromax] 500 mg PO DAILY 1 Days #1 tab 05/28/23 [Rx] predniSONE 10 mg PO DAILY 8 Days #20 tab 05/28/23 [Rx] Follow up Appointment(s)/Referral(s): Shayne Moses MD [STAFF PHYSICIAN] - 06/04/23 10:00 am (WEDNESDAY) Inderjit Sims MD [Primary Care Provider] - 06/01/23 10:50 am (WEDNESDAY) Patient Instructions/Handouts: COPD (Chronic Obstructive Pulmonary Disease) (DC) Activity/Diet/Wound Care/Special Instructions: [facility] has free glucometer and low cost test strips. Discharge/Stand Alone Forms: Who Do I Call?, Community Resources, Personal Research Hydraulic Engineer, Area PCPs
[2023-05-28 12:19] VITALS: BMI 31.5
--- NOTE | 2023-05-28 13:46 | P.PN ---
Subjective Progress Note Date: 05/28/23 I am seeing this patient in consultation today 05/27/2023 in the emergency room for suspected acute COPD exacerbation. Patient is a 62-year-old male with past medical history significant for advanced bullous emphysema, hypertension, type 2 diabetes. Patient does follow Dr. Moses in the pulmonary office. He did have a recent hospital admission for ALLERGIC reaction, possibly to a new diabetic medication that he was started on and also COPD exacerbation, back in March of this year. Patient returned to the emergency room earlier this morning with a chief complaint of progressively worsening shortness of breath over the last several days. Admits to having a persistent cough with minimal amount of clear sputum. Denies any fevers, chest pain, hemoptysis. Patient only takes [facility] outpatient basis. No maintenance inhaler mostly because he refuses to take anything other than Symbicort, and his insurance does not cover this medication. He is afraid of having ALLERGIC reaction. He is currently sitting up in bed, on 3 L/m nasal cannula, in no acute distress. He states that he star ap feeling better from when he came in. Chest x-ray shows a possible patchy left basilar infiltrate. Afebrile. CBC on arrival is unremarkable. No leukocytosis. BMP was also unremarkable. Glucose was elevated. Troponin 0.02. Vital signs are stable. The patient is seen today 05/28/2023 in follow-up on the selective care unit. He is up ambulating in his room. Awake and alert in no acute distress. Feeling nearly back to his baseline. He is maintaining good O2 saturations in the 90s on room air. He's afebrile. Hemodynamically stable. White count 10.3. He will 14.5. Sodium 138. Potassium 4.7. Bicarb 20. BUN 20. Creatinine 0.61. Pro-calcitonin 0.05. He is maintained on DuoNeb inhalations, Symbicort, Solu- Medrol. Empiric antibiotics in the form of azithromycin. Objective - Vital Signs Vital signs: Vital Signs Temp 97.8 F 05/28/23 09:40 Pulse 76 05/28/23 11:38 Resp 18 05/28/23 09:40 BP 137/76 05/28/23 09:40 Pulse Ox 95 05/28/23 10:53 FiO2 Intake & Output 12/05/28/23 05/28/23 18:59 06:59 18:59 Intake Total 118 20 410 Output Total 350 300 Balance 118 -330 110 Weight 99.79 kg 99.79 kg Intake: IV 20 10 Invasive Line 1 20 10 Intake, IV Titration 50 Amount cefTRIAXone 2 gm In 50 Sodium Chloride 0.9% 50 ml @ 100 mls/hr IVPB Q24HR [facility] Rx#:[id number] Oral 118 350 Output: Urine 350 300 Other: Voiding Method Toilet Toilet # Voids 1 - Exam GENERAL EXAM: Alert, active, very pleasant 62-year-old male, on room air, comfortable in no apparent distress. HEAD: Normocephalic. EYES: Normal reaction of pupils, equal size. NOSE: Clear with pink turbinates. THROAT: No erythema or exudates. NECK: No masses, no JVD. CHEST: No chest wall deformity. LUNGS: Equal air entry with no crackles, wheeze, rhonchi or dullness. Diminished. CVS: S1 and S2 normal with no audible murmur, regular rhythm. ABDOMEN: No hepatosplenomegaly, normal bowel sounds, no guarding or rigidity. SPINE: No scoliosis or deformity SKIN: No rashes CENTRAL NERVOUS SYSTEM: No focal deficits, tone is normal in all 4 extremities. EXTREMITIES: There is no peripheral edema. No clubbing, no cyanosis. Peripheral pulses are intact. - Labs CBC & Chem 7: 05/28/23 07:38 05/28/23 07:38 Labs: Abnormal Lab Results - Last 24 Hours (Table) 05/27/23 05/27/23 05/28/23 Range/Units 17:45 20:27 06:04 Carbon Dioxide (22-30) mmol/L Creatinine (0.66-1.25) mg/dL Glucose (74-99) mg/dL POC Glucose (mg/dL) 339 H 363 H 269 H (70-110) mg/dL Hemoglobin A1c (<=6.0) % 05/28/23 05/28/23 05/28/23 Range/Units 07:38 07:38 11:18 Carbon Dioxide 20 L (22-30) mmol/L Creatinine 0.61 L (0.66-1.25) mg/dL Glucose 304 H (74-99) mg/dL POC Glucose (mg/dL) 340 H (70-110) mg/dL Hemoglobin A1c 10.4 H (<=6.0) % Assessment and Plan Assessment: Acute hypoxemic respiratory failure, secondary to acute COPD exacerbation and possible left lower lobe community acquired pneumonia. Chest x-ray shows possible developing left lower lobe infiltrate versus atelectasis. Procalcitonin negative at 0.05 Severe bullous emphysema Diabetes mellitus type 2 Hypertension Hyperlipidemia Obesity with a BMI of 31.6 kg/m Former tobacco smoker Plan: The patient was seen and evaluated Labs and medications reviewed Stable and on room air Cleared for discharge from the pulmonary standpoint Continue his home pulmonary medications Complete prednisone taper Follow-up in our office in 1 week I have personally seen and examined the patient, performed the documentation and the assessment and plan as written. Number of minutes spent on the visit: 10.
== END 2023-05-28 12:40 | disposition home or self-care (01) | DRG 193 ==
LOC: EC 04:17 → 3SCARD 05:50
PROVIDERS: ADMIT Hospitalist; ATTEND Hospitalist
DX: J18.9 Pneumonia, unspecified organism (principal); J96.01 Acute respiratory failure with hypoxia; E87.20 Acidosis, unspecified; Z87.891 Personal history of nicotine dependence; E66.9 Obesity, unspecified; E78.5 Hyperlipidemia, unspecified; E83.42 Hypomagnesemia; F41.9 Anxiety disorder, unspecified; I10 Essential (primary) hypertension; E11.9 Type 2 diabetes mellitus without complications; J43.9 Emphysema, unspecified; Z68.31 Body mass index [BMI] 31.0-31.9, adult; Z79.1 Long term (current) use of non-steroidal anti-inflammatories (NSAID); Z79.84 Long term (current) use of oral hypoglycemic drugs; Z79.899 Other long term (current) drug therapy; Z83.3 Family history of diabetes mellitus; Z28.310 Unvaccinated for COVID-19; Z28.21 Immunization not carried out because of patient refusal
CPT/HCPCS: 36415; 71045; 80053; 83036; 83605; 83735; 84145; 84484; 85025; 85027; 85610; 85730; 87636; 93005; 94640; 94644; 94760; 96361; 96365; 96366; 96367; 96375; 96376; 99291